=== PATIENT | female | born 1940 | race Caucasian/White ===

== ENCOUNTER 2016-05-20 11:17 | Outpatient (CLI) | payer MEDICARE, OTHER | END 2016-05-20 11:18 | disposition home or self-care (01) | DX: I10 Essential (primary) hypertension (principal); E03.9 Hypothyroidism, unspecified ==

== ENCOUNTER 2016-05-24 11:00 | Outpatient (CLI) | payer MEDICARE, OTHER ==
--- NOTE | 2016-05-25 16:42 | Mammography Report ---
DIGITAL BILATERAL SCREENING MAMMOGRAM: 05/24/2016 CLINICAL HISTORY: A 75-year-old female, asymptomatic. COMPARISON: 05/2013, 07/2010, 12/2008, 09/2007. TECHNIQUE: Routine CC and MLO projections were obtained of the breasts. FINDINGS: Scattered fibroglandular tissue is present within the breasts. There are no dominant nova s, suspicious microcalcifications, or secondary signs of malignancy. In comparison to the previous st udies, there are no significant changes. ASSESSMENT: NO MAMMOGRAPHIC EVIDENCE OF MALIGNANCY. NO SIGNIFICANT INTERVAL CHANGES. RECOMMENDATION: Screening mammography is recommended annually. BIRADS category 1 - negative. STANDARD QUALIFYING STATEMENTS 1. This examination was reviewed with the aid of Computed-Aided Detection (CAD). 2. A negative or benign imaging report should not delay biopsy if clinically suspicious findings are present. Consider surgical consultation if warranted. More than 5% of cancers are not identified by i maging. 3. Dense breasts may obscure an underlying neoplasm. JOB #: [id number] EXT JOB #:[id number]
== END 2016-05-24 11:01 | disposition home or self-care (01) ==
LOC: DI 11:00
PROVIDERS: ATTEND Internal Medicine
DX: Z12.31 Encounter for screening mammogram for malignant neoplasm of breast (principal)
CPT/HCPCS: 77067

== ENCOUNTER 2017-05-24 10:52 | Outpatient (CLI) | payer MEDICARE, OTHER ==
--- NOTE | 2017-05-26 13:34 | DEXA Report ---
DEXA SCAN: 05/24/2017 INDICATION: SCREENING TECHNIQUE: Dual energy x-ray absorptiometry (DEXA) was performed on a [employer] system. Regions measured are the AP spine, femoral neck, and, if needed, forearm. COMPARISON: None. In accordance with the International Society for Clinical Densitometry (ISCD) guidelines, data from previous exams may be reanalyzed using current recommendations and techniques. This is done to allow a more accurate basis for comparison with the current study. FINDINGS The data for the lumbar spine is as follows: REGION BMD (g/cm/cm) T-SCORE Z-SCORE L1 1.087 -0.4 1.5 L2 1.081 -1.0 0.9 L3 1.319 1.0 2.9 L4 1.231 0.3 2.2 L1-L4 1.181 0.0 1.9 L2-L4 1.214 0.1 2.0 NOTE: ONLY L2 IS USED FOR CLASSIFICATION. The data for the hip is as follows: REGION BMD (g/cm/cm) T-SCORE Z-SCORE Neck 0.696 -2.5 -0.3 TOTAL 0.780 -1.8 0.2 NOTE: The femoral neck or total proximal femur, whichever is lowest, is used for classification. IMPRESSION WHO CLASSIFICATION BASED ON THE INTERNATIONAL REFERENCE STANDARD IS OSTEOPENIA FOR THE LUMBAR SPINE. WHO CLASSIFICATION FOR THE FEMORAL NECK IS OSTEOPOROSIS. FRACTURE RISK IS HIGH. RECOMMENDATION: Patients with diagnosis of osteoporosis or osteopenia should have regular bone mineral density assessment. For those eligible for Medicare, routine testing is allowed once every 2 years. Testing frequency can be increased for patients who have rapidly progressing disease or for those who are receiving medical therapy to restore bone mass. COMMENT World Health Organization (WHO) definitions for osteoporosis and osteopenia: NORMAL BMD: T-score at 1.0 or higher, fracture risk is low. OSTEOPENIA BMD: T-score between 1.0 and -2.5, fracture risk is increased. OSTEOPOROSIS BMD: T-score at 2.5 or lower, fracture risk high. National Osteoporosis Foundation recommends: 1. Obtain adequate dietary calcium (at least 1200 mg per day) and vitamin D (400 -800 international units per day). 2. Participate, as appropriate, in regular weightbearing and muscle- strengthening exercise. 3. Avoid tobacco use and reduce alcohol and caffeine intake. 4. For more detailed information see the website at www.NOF.org. TD: 05/24/2017 14:40 DAVI
== END 2017-05-24 10:53 | disposition home or self-care (01) ==
LOC: DI 10:52
PROVIDERS: ATTEND Family Medicine
DX: M81.0 Age-related osteoporosis without current pathological fracture (principal)
CPT/HCPCS: 77080

== ENCOUNTER 2017-05-24 10:52 | Outpatient (CLI) | payer MEDICARE, OTHER ==
--- NOTE | 2017-05-25 17:42 | Mammography Report ---
BILATERAL SCREENING MAMMOGRAM: 05/24/2017 COMPARISON STUDY: Mammogram 05/24/2016. INDICATION: Screening. TECHNIQUE: Bilateral CC and MLO breast views. FINDINGS: There are scattered fibroglandular densities. No dominant mass, architectural distortion or concerning cluster of microcalcifications are seen. IMPRESSION: 1. BIRADS CATEGORY 1, NEGATIVE. 2. RECOMMEND ANNUAL SCREENING MAMMOGRAM. STANDARD QUALIFYING STATEMENTS 1. This examination was reviewed with the aid of Computed-Aided Detection (CAD) . 2. A negative or benign imaging report should not delay biopsy if clinically suspicious findings are present. Consider surgical consultation if warranted. More than 5 % of cancers are not identified by imaging. 3. Dense breasts may obscure an underlying neoplasm. TD: 05/25/2017 17:42 MTDAshish
== END 2017-05-24 10:53 | disposition home or self-care (01) ==
LOC: DI 10:52
PROVIDERS: ATTEND Family Medicine
DX: Z12.31 Encounter for screening mammogram for malignant neoplasm of breast (principal)
CPT/HCPCS: 77067

== ENCOUNTER 2019-05-03 10:43 | Outpatient (CLI) | payer MEDICARE, OTHER | END 2019-05-03 10:44 | disposition critical access hospital (66) | LOC: EMS 10:43 | PROVIDERS: ATTEND Surgery | DX: M79.651 Pain in right thigh (principal); M54.5 Low back pain; W01.0XXA Fall on same level from slipping, tripping and stumbling without subsequent striking against object, initial encounter; Y93.G3 Activity, cooking and baking; Y92.000 Kitchen of unspecified non-institutional (private) residence as the place of occurrence of the external cause | CPT/HCPCS: A0425; A0429 ==

== ENCOUNTER 2019-05-03 10:58 | Inpatient (IN) | payer MEDICARE, OTHER ==
[2019-05-03] MEDS ORDERED: oxyCODONE 5 MG TABLET PO STA (12:41)
--- NOTE | 2019-05-03 12:44 | ED Physician Documentation ---
History of Present Illness - Stated complaint Stated Complaint: FALL - Chief complaint Chief Complaint: Ext Problem - History obtained from History obtained from: Patient - History of Present Illness Timing: Last night Pain level max: 8 Pain level now: 8 - Additonal information Additional information: 78-year-old female was in her kitchen last night when she slipped fell landed on the hip, right knee, neck and back of the head. Unsure if she lost consciousness or not. No nausea or vomiting. States most of her pain is now on the right hip down to the right knee. States it is difficult to bear weight. She took an aspirin this morning for pain. No numbness or tingling. No deformity. She is not on blood thinners. Worse with ambulation, better with rest Review of Systems Ten Systems: 10 systems reviewed and negative Constitutional: denies: Fever, Chills Eyes: denies: Photophobia Ears: denies: Ear pain Nose: denies: Epistaxis Throat: denies: Sore throat Cardiac: denies: Chest pain / pressure Respiratory: denies: Cough GI: denies: Abdominal Pain, Vomiting, Diarrhea Skin: denies: Rash Musculoskeletal: denies: Neck pain, Back pain Neurologic: denies: Focal weakness, Numbness, Headache PD PAST MEDICAL HISTORY - Past Medical History Past Medical History: Yes Endocrine/Autoimmune: HyPOthyroidism - Past Surgical History Past Surgical History: Yes - Present Medications Home Medications: Ambulatory Orders Medication Instructions Recorded Confirmed Cholecalciferol (Vitamin D3) 1 tab PO DAILY 05/03/19 [Vitamin D3] Glucosamine HCl 1,500 mg PO DAILY 05/03/19 05/03/19 Levothyroxine [Synthroid] 75 mcg PO DAILY 05/03/19 05/03/19 Loratadine 10 mg PO DAILY 05/03/19 05/03/19 Multivitamin [Theragran] 1 tab PO DAILY 05/03/19 05/03/19 Naproxen Sodium [Aleve] 220 mg PO QPM 05/03/19 05/03/19 Omeprazole 20 mg PO DAILY 05/03/19 05/03/19 Zolpidem [Ambien] 2.5 mg PO QPM PRN 05/03/19 05/03/19 - Allergies Allergies/Adverse Reactions: Allergies Allergy/AdvReac Type Severity Reaction Status Date / Time diphenhydramine AdvReac Unknown Verified 05/03/19 11:35 [From Benadryl] - Social History Does the pt smoke?: No Smoking Status: Never smoker Does the pt drink ETOH?: No Does the pt have substance abuse?: No PD ED PE NORMAL - Vitals Vital signs reviewed: Yes - General General: Alert and oriented X 3, No acute distress, Well developed/nourished - HEENT HEENT: Atraumatic, PERRL, Ears normal, Moist mucous membranes - Neck Neck: Supple, no meningeal sign, No bony TTP - Cardiac Cardiac: RRR, Strong equal pulses - Respiratory Respiratory: No respiratory distress, Clear bilaterally - Abdomen Abdomen: Soft, Non tender, Non distended - Back Back: No spinal TTP - Derm Derm: Warm and dry - Extremities Extremities: No deformity, Other (Mild pain with range of motion of the right knee and right hip. No deformity. No tenderness to palpation. There is pain with internal and external rotation of the right hip. Neurovascular intact. Normal examination of the remainder of the right lower extremity and the left lower extremity. The right knee ACL, MCL, PCL, LCL are intact. No effusion. No ecchymosis over the entire leg) - Neuro Neuro: Alert and oriented X 3 - Psych Psych: Normal mood, Normal affect Results - Vitals Vitals: Vital Signs - 24 hr 05/03/19 11:00 Temperature 36.7 C Heart Rate 90 Respiratory 18 Rate Blood Pressure 156/71 H O2 Saturation 99 Oxygen O2 Source Room air - Labs Labs: Laboratory Tests 05/03/19 05/03/19 14:20 14:20 WBC 11.6 H RBC 4.79 Hgb 14.7 Hct 43.1 MCV 90.0 MCH 30.7 MCHC 34.1 RDW 12.8 Plt Count 221 MPV 8.8 Neut # (Auto) 9.1 H Lymph # (Auto) 1.2 L [place] # (Auto) 0.6 Eos # (Auto) 0.5 Baso # (Auto) 0.0 Absolute Nucleated RBC 0.00 Nucleated RBC % 0.0 Sodium 137 Potassium 3.6 Chloride 103 Carbon Dioxide 25 Anion Gap 9.0 BUN 12 Creatinine 0.6 Estimated GFR (MDRD) 96 Glucose 118 H Calcium 9.4 - Rads (name of study) Head CT Radiology: Prelim report reviewed, EMP read contemporaneously, See rad report (No acute abnormality) Cervical spine CT Radiology: Prelim report reviewed, EMP read contemporaneously, See rad report (No acute abnormality) Right hip x-ray Radiology: Prelim report reviewed, EMP read contemporaneously, See rad report (1. Osteopenia with evident mildly displaced right femoral neck fracture noted. 2. Possible additional subtle nondisplaced fracture of the right pubic root. ) Right knee x-ray Radiology: Prelim report reviewed, EMP read contemporaneously, See rad report (No acute abnormality) PD MEDICAL DECISION MAKING - ED course Complexity details: reviewed results, re-evaluated patient, considered d ifferential, d/w patient, d/w document management consultant ED course: Patient with a right hip fracture. Discussed the case with Dr. Zaragoza, orthopedics who recommends admission to the hospitalist and he will come evaluate the patient after that. Discussed the case with Dr. Zepeda who will accept. No acute findings on head CT, cervical spine CT or x-ray of the knee. This document was made in part using voice recognition software. While efforts are made to proofread this document, sound alike and grammatical errors may occur. Departure - Departure Disposition: [facility] DC/Xfer Clinical Impression: Hip fracture, right Qualifiers: Qualified Code(s): S72.001A - Fracture of unspecified part of neck of right femur, initial encounter for closed fracture Condition: Stable Discharge Date/Time: 05/03/19 16:13
--- NOTE | 2019-05-03 13:41 | CT Report ---
Reason: neck pain s/p fall Procedure Date: 05/03/2019 Accession Number: [id number] / [id number] Procedure: CT - CERVICAL SPINE WO CPT Code: Final Report FULL RESULT: EXAM: CT CERVICAL SPINE WITHOUT CONTRAST DATE: 05/03/2019 01:19 PM. HISTORY: Neck pain s/p fall. COMPARISONS: None. TECHNIQUE: Thin-section axial images were acquired of the cervical spine without contrast. Post-processing: Coronal and sagittal reformats. Other: None. In accordance with CT protocol optimization, one or more of the following dose reduction techniques were utilized for this exam: automated exposure control, adjustment of mA and/or KV based on patient size, or use of iterative reconstructive technique. FINDINGS: Alignment: There is a proximally 3 mm, grade 1 anterolisthesis at C7-T1. There is no significant scoliosis. Bones: No acute fracture is demonstrated. Degenerative cystic change demonstrated and the odontoid process. Interspace Levels/Facets: C1-C2: Degeneration at the articulation of the C1-C2 lateral mass. C2-C3: Mild disk height loss with central disk protrusion. There is severe left facet degeneration. No significant central canal or neural foraminal narrowing. C3-C4: Severe degenerative disk disease with posterior disk osteophyte complex. Severe bilateral facet degeneration is present. No significant central canal narrowing. However, there is moderate-severe right neural foraminal narrowing. C4-C5: Severe degenerative disk disease and severe bilateral facet degeneration. There is moderate right neural foraminal narrowing. C5-C6: Severe degenerative disk disease with broad posterior disk osteophyte complex. Moderate bilateral facet degeneration. Central canal appears mildly narrowed, and there is moderate bilateral neural foraminal narrowing. C6-C7: Severe degenerative disk disease demonstrated. There is mild right neural foraminal narrowing. C7-T1: There is severe degenerative disk disease and grade 1 anterolisthesis. Severe bilateral facet degeneration. Musculature: No fatty atrophy. Other: No edema is demonstrated in the prevertebral space. There are small gas-filled outpouchings along the right posterior aspect of the trachea (series 4, images 70 and 75), most compatible with tracheal diverticuli. Lung apices are clear. IMPRESSION: 1. No acute fracture of the cervical spine. 2. Severe multilevel degenerative changes, as described above. 3. Grade 1 anterolisthesis at C7-T1. RADIA
--- NOTE | 2019-05-03 14:02 | XRAY Report ---
Reason: R hip pain s/p fall Procedure Date: 05/03/2019 Accession Number: [id number] / [id number] Procedure: XR - Hip w/Pelvis 2-3V RT CPT Code: Final Report FULL RESULT: EXAM: RIGHT HIP RADIOGRAPHY EXAM DATE: 05/03/2019 01:30 PM. CLINICAL HISTORY: R hip pain s/p fall. COMPARISON: None. TECHNIQUE: 2 views. FINDINGS: Bones: Osteopenia evident. Mildly displaced right femoral neck fracture is seen. Lucency at the right pubic root may reflect a subtle nondisplaced fracture. Joints: Normal alignment of the hip joints. Mild degenerative arthritis seen. No dislocation. Soft Tissues: Soft tissue swelling of the right hip. IMPRESSION: 1. Osteopenia with evident mildly displaced right femoral neck fracture noted. 2. Possible additional subtle nondisplaced fracture of the right pubic root. 3. No dislocation. RADIA
--- NOTE | 2019-05-03 14:02 | CT Report ---
Reason: head injury s/p fall Procedure Date: 05/03/2019 Accession Number: [id number] / [id number] Procedure: CT - HEAD WO CPT Code: Final Report FULL RESULT: EXAM: CT HEAD EXAM DATE: 05/03/2019 01:19 PM. CLINICAL HISTORY: Head injury status post fall. COMPARISON: None. TECHNIQUE: Multiaxial CT images were obtained from the foramen magnum to the vertex. Reformats: Sagittal and coronal. IV contrast: None. In accordance with CT protocol optimization, one or more of the following dose reduction techniques were utilized for this exam: automated exposure control, adjustment of mA and/or KV based on patient size, or use of iterative reconstructive technique. FINDINGS: Parenchyma: No intraparenchymal hemorrhage. No evidence of mass, midline shift, or CT findings of infarction. Roca-white differentiation is distinct. Extraaxial Spaces: Normal for age. No subdural or epidural collections identified. Ventricles: Normal in size and position. Sinuses and Orbits: Imaged paranasal sinuses, orbits, and mastoids show no significant abnormality. Bones: No evidence of fracture or calvarial defect. Other: None. IMPRESSION: Normal head CT. No fracture or intracranial hemorrhage. RADIA
--- NOTE | 2019-05-03 14:03 | XRAY Report ---
Reason: R knee pain s/p fall Procedure Date: 05/03/2019 Accession Number: [id number] / [id number] Procedure: XR - Knee 4 View RT CPT Code: Final Report FULL RESULT: EXAM: RIGHT KNEE RADIOGRAPHY EXAM DATE: 05/03/2019 01:41 PM. CLINICAL HISTORY: Right knee pain status post fall. COMPARISON: XR KNEE 1 OR 2 VIEW 10/03/2008 12:08 PM. TECHNIQUE: 4 views. FINDINGS: Bones: No evidence for acute fracture. Sclerotic ring and arc type pattern seen in the distal femoral diaphysis, appears benign, could represent enchondroma or bone infarct. Joints: Moderate lateral compartment femoral tibial joint space narrowing with sclerosis and osteophytes. Mild medial compartment femoral tibial osteophytes with chondrocalcinosis. Minimal posterior patellar osteophyte. No subluxation. No significant knee joint effusion. Soft Tissues: Unremarkable. IMPRESSION: No evidence for acute fracture. Degenerative changes. See above. RADIA
[2019-05-03] MEDS ORDERED: SODIUM CHLORIDE FLUSH 0.9% 10 ML SYRINGE IVP PRN (14:22)
[2019-05-03 14:25] LABS: BASOPHILS % (AUTO) 0.3 %; EOSINOPHILS # (AUTO) 0.5 10^3/uL (0.0-0.7); EOSINOPHILS % (AUTO) 4.7 %; HGB - HEMOGLOBIN 14.7 g/dL (12.0-16.0); LYMPHOCYTES # (AUTO) 1.2 10^3/uL (1.5-3.5); LYMPHOCYTES % (AUTO) 10.3 %; MEAN CORPUSCULAR HEMOGLOBIN 30.7 pg (27.0-31.0); MEAN CORPUSCULAR HGB CONC 34.1 g/dL (32.0-36.0); MEAN PLATELET VOLUME 8.8 fL (7.9-10.8); MONOCYTES # (AUTO) 0.6 10^3/uL (0.0-1.0); MONOCYTES % (AUTO) 5.5 %; NEUTROPHILS # (AUTO) 9.1 10^3/uL (1.5-6.6); NEUTROPHILS % (AUTO) 78.7 %; PLT - PLATELET COUNT 221 10^3/uL (130-450); RED BLOOD COUNT 4.79 10^6/uL (4.20-5.40); RED CELL DISTRIBUTION WIDTH 12.8 % (12.0-15.0); WHITE BLOOD COUNT 11.6 x10^3/uL (4.8-10.8)
[2019-05-03 14:34] LABS: CALCIUM 9.4 mg/dL (8.5-10.3); CREATININE 0.6 mg/dL (0.4-1.0)
--- NOTE | 2019-05-03 15:11 | ANESTHESIA ---
Pre-Anesthesia VS, & Labs - Diagnosis Right hip fracture - Procedure Right hip fracture repair Vital Signs: Temp Pulse Resp BP Pulse Ox 36.7 C 90 18 156/71 H 99 05/03/19 11:00 05/03/19 11:00 05/03/19 11:00 05/03/19 11:00 05/03/19 11:00 Height 4 ft 10 in Weight (kg) 63.503 kg Body Mass Index 29.2 - Is Patient ?: Not Applicable - Lab Results Current Lab Results: Laboratory Tests 05/03/19 14:20: Sodium 137, Potassium 3.6, Chloride 103, Carbon Dioxide 25, Anion Gap 9.0, BUN 12, Creatinine 0.6, Estimated GFR (MDRD) 96, Glucose 118 H, Calcium 9.4 05/03/19 14:20: WBC 11.6 H, RBC 4.79, Hgb 14.7, Hct 43.1, MCV 90.0, MCH 30.7, MCHC 34.1, RDW 12.8, Plt Count 221, MPV 8.8, Neut # (Auto) 9.1 H, Lymph # (Auto) 1.2 L, Leon # (Auto) 0.6, Eos # (Auto) 0.5, Baso # (Auto) 0.0, Absolute Nucleated RBC 0.00, Nucleated RBC % 0.0 Lab results reviewed: Yes Fish Bones: 05/03/19 14:20 05/03/19 14:20 Home Medications and Allergies Home Medications: Ambulatory Orders Loratadine 05/03/19 Active Medications Sodium Chloride (Normal Saline Flush 0.9%) 10 ml IVP PRN PRN PRN Reason: NEEDED PER PROVIDER ORDERS Sodium Chloride (Normal Saline Flush 0.9%) 10 ml IVP 0100,[id number],1700 CARLOS Loratadine 05/03/19 Prilosec Naprosyn Ambien Allergies/Adverse Reactions: Allergies Allergy/AdvReac Type Severity Reaction Status Date / Time diphenhydramine AdvReac Unknown Verified 05/03/19 11:35 [From Benadryl] Anes History & Medical History - Anesthetic History Anesthesia Complications: reports: No previous complications Family history of Anesthesia Complications: Denies Family history of Malignant Hyperthermia: Denies - Medical History Cardiovascular: reports: Hypertension Pulmonary: reports: None Gastrointestinal: reports: GERD Urinary: reports: None Neuro: reports: None Musculoskeletal: reports: Osteoarthritis, Osteoporosis (Cervical stenosis) Endocrine/Autoimmune: reports: HyPOthyroidism Blood Disorders: reports: None (Patient ststes she is a "slow clotter") Skin: reports: None Smoking Status: Never smoker Psychosocial: reports: No issues indicated Exam General: Alert, Oriented x3, Cooperative Dental: WNL Mouth Opening: Greater than 4 Fingerbreadths Neck Mobility: Normal Mallampati classification: I Thyromental Distance: greater than 6 cm Respiratory: Lungs clear Cardiovascular: Regular rate Plan Anesthesia Type: General Consent for Procedure(s) Verified and Reviewed: Yes Code Status: Attempt Resuscitation ASA classification: 2-Mild systemic disease Is this case an emergency?: Yes
--- NOTE | 2019-05-03 15:32 | HISTORY & PHYSICAL EXAMINATION ---
Chief Complaint - Chief Complaint Chief Complaint: fall, inability to walk History of Present Illness - Admitted From Admitted From:: ED - History Obtained From Records Reviewed: yes History obtained from: patient Exam Limitations: none - History of Present Illness HPI Comment/Other: Shyann Morgan is a healthy appearing 78-year old white female with a past medical history of hypothyroidism, thyroid tumor, status post thyroidectomy, hypertension, uterine fibroids, status post hysterectomy at age 48, and insomnia. The patient was in her usual state of health when she accidentally slipped and fell backwards, while in her kitchen. She states that her sister is visiting from out of state, so she was cooking a meal for the two of them after spending the day in [employer]. She states that she has never fallen or lost consciousness, that she knows of. She states she had no warning such as dizziness, confusion, chest pain, nausea, diaphoresis, or palpitations as she was about to fall. She believes that the kitchen floor may have had a tiny puddle of water on it and she was wearing crock shoes, which can be slippery, so that is how she ended up on the floor. She landed on her right elbow, right hip, right knee, clunked her head and neck on the floor, as well. She was very thankful that her sister was there, who quickly helped her up in a doggy style position, and back on her feet. Right away, she could not bear too much weight on the right leg without having horrible pain in her right hip. She did not think it was broken since she could bear some weight on it. When waking up this morning, she could not bear weight on her right leg, so she was brought to the ED via private car. Imaging in the ED showed a mildly displaced right femoral neck fracture, possible subtle non-displaced fracture of the right pubic root. No significant labs, no abnormal exam findings. Admit to inpatient with anticipation of surgery in the AM. 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 Father: at age 98, no known chronic diseases. The patient has 2 daughters, 2 sons who are all alive and well Living arrangement: At home Living Situation: Alone Social History Notes: The patient is retired, lives alone since her 5 years ago. Her daughter lives very close to her. The patient is independent, still drives, is heavily involved with her christianity. Attends a [employer] walking group called, walk & talk every Monday morning. 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 She notes that she has lived a good life. She denies tobacco, alcohol, or illicit drug use. She states she has an advanced directive. When asking about life saving measures, she believes for now she is a FULL code. - Substance History Use: Uses substance without health or social issues: NONE Abuse: Recurrent use of substance despite neg consequences: NONE Dependence: Experiences withdrawal or developed tolerances: NONE - POLST Patient has POLST: No POLST Status: Full Code Meds/Allgy - Home Medications Home Medications: Ambulatory Orders Medication Instructions Recorded Confirmed Cholecalciferol (Vitamin D3) 1 tab PO DAILY 05/03/19 [Vitamin D3] Glucosamine HCl 1,500 mg PO DAILY 05/03/19 05/03/19 Levothyroxine [Synthroid] 75 mcg PO DAILY 05/03/19 05/03/19 Loratadine 10 mg PO DAILY 05/03/19 05/03/19 Multivitamin [Theragran] 1 tab PO DAILY 05/03/19 05/03/19 Naproxen Sodium [Aleve] 220 mg PO QPM 05/03/19 05/03/19 Omeprazole 20 mg PO DAILY 05/03/19 05/03/19 Zolpidem [Ambien] 2.5 mg PO QPM PRN 05/03/19 05/03/19 - Allergies Allergies/Adverse Reactions: Allergies Allergy/AdvReac Type Severity Reaction Status Date / Time diphenhydramine AdvReac Unknown Verified 05/03/19 11:35 [From Benadryl] Review of Systems - Constitutional Constitutional: reports: Weakness - Gastrointestinal Gastrointestinal: reports: Reflux/heartburn - Musculoskeletal Musculoskeletal: reports: Limited range of motion, Joint pain (right hip, right elbow, right knee), Joint swelling - Neurological Neurological: reports: Focal weakness - Psychiatric Psychiatric: reports: Other (chronic insomnia) - All Other Systems All Other Systems: reports: Reviewed and negative Prior Level of Functionality: independent, drives a car, no falls prior to this, no use of a cane, in a walking club Exam - Vital Signs Reviewed Vital Signs: Yes Vital Signs: Vital Signs x48h Temp Pulse Resp BP Pulse Ox 05/03/19 11:00 36.7 C 90 18 156/71 H 99 - Physical Exam General Appearance: positive: No acute distress, Alert Eyes Bilateral: positive: Normal inspection, PERRL ENT: positive: ENT inspection nml, Pharynx nml, Dry mucous membranes Neck: positive: Thyroid nml, No JVD, Trachea midline Respiratory: positive: Chest non-tender, No respiratory distress, Breath sounds nml Cardiovascular: positive: Regular rate & rhythm, No gallop, Systolic murmur Peripheral Pulses: positive: 2+ Abdomen: positive: Non-tender, No organomegaly, Nml bowel sounds, Other (rounded, soft) Back: positive: Nml inspection Skin: positive: Color nml, No rash, Warm, Dry Extremities: positive: No pedal edema, Joint swelling (right knee, right hip, right elbow bruising) Neurologic/Psychiatric: positive: Oriented x3, CN's nml (2-12), Motor nml, Sensation nml, Mood/affect nml Reflexes: Bicep (R): 4+, Bicep (L): 4+, Ankle (R): 2+, Ankle (L): 3+ Conclusion/Plan - Problem List (1) Hip fracture, right Conclusion/Plan: - Imaging in the ED showed a mildly displaced right femoral neck fracture, possible subtle non-displaced fracture of the right pubic root -Dr. 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 -No recent TSH -Continue usual dose of Synthroid, adjust as needed Hypertension -Patient notes that in her younger years she had more stress in her life and was on HCTZ and one other pill, but has since not needed anything for blood pressure -B/P elevated in the ED at 156/71, heart rate 90 -Murmur heard on exam, concerning for valve abnormalities, echo is ordered for the AM -The echocardiogram does not have to be done prior to surgery since the patient has no other cardiac history such as atrial fibrillation, or known HI -Consider antihypertensive post op, monitor vital signs Insomnia -Patient states she takes Ambien at home -Notes that her family had a long history of sleep problems -Continue while in the hospital GERD -Patient takes PPI for her heart burn -PPI therapy if long-term can lead to bone loss (loss of magnesium) -Patient would like to stop her home PPI -Continue H2 brenna, anticipate sending a prescription to the pharmacy Allergies -Patient takes loratadine -Resume after surgery Pre-op exam -Using the revised cardiac index score, the patient scores a 3.9%, since she has no cardiac history, no diabetes, no history of TIA or stroke, no kidney disease and this is not a high risk surgery in that it will not involve the abdomen or chest cavities Qualifiers: - Lab Results Lab results reviewed: Yes Neal Bones: 05/03/19 14:20 05/03/19 14:20 Core Measures - Anticipated LOS I expect patient to be DC'd or transferred within 96 hours.: Yes - DVT/VTE - Prophylaxis VTE/DVT Device ordered at admit?: Yes VTE/DVT Prophylaxis med ordered at admit?: No Not Ordered - Medical Reason: Contraindicated - Stroke - Rehab Assessment Rehab services assessment to be ordered?: Yes - AMI - Statin at Admit Aspirin Prescribed on Admit: No Not Ordered - Medical Reason: Contraindicated
--- NOTE | 2019-05-03 16:03 | PHARMACY PROGRESS NOTE ---
- Best Possible Medication History Admit Date and Time: 05/03/19 1422 Processed by: Pharmacy Medication History completed: Yes Patient Interview: Completed Secondary Source(s): Physician records As the person ultimately responsible for medication therapy, providers are able to order a medication from an existing home medication list in [facility] via the "Reconcile Routine" prior to Confirmation of that medication by administrative support associate. Such practice is discouraged except when the physician, in their clinical judgment, deems that a medical need exists for a medication without regard to previous use.
[2019-05-03] MEDS ORDERED: ZOLPIDEM 5 MG TABLET PO PRN (16:14)
[2019-05-03] MEDS ORDERED: ACETAMINOPHEN 325 MG TABLET PO PRN (16:15)
[2019-05-03] MEDS: SODIUM CHLORIDE FLUSH 0.9% 10 ML SYRINGE IVP SCH (16:23)
[2019-05-03] MEDS: NS W/20 MEQ KCL 1,000 ML IV SCH (17:08)
[2019-05-03] MEDS: HYDROmorphone 1 MG/ML SYRINGE IVP PRN (19:13)
--- NOTE | 2019-05-03 19:59 | CONSULTATION NOTE ---
Referring Provider Name of Referring Provider:: Damian Billingsley MD Consult Date: 05/03/19 Chief Complaint - Chief Complaint Chief Complaint: asked to evaluate patient for right femoral neck fracture History of Present Illness - History Obtained From Records Reviewed: chart History obtained from: ED MD, patient, daughter - History of Present Illness HPI Comment/Other: patient is an 78F who is active and lives alone. does not use assistive device for ambulation. [place]. Patient slipped last night in kitchen and had hip pain and difficulty ambulating. was helped by her sister who is visiting from out of town to get around. then brought in to ED and found to have a right femoral neck fracture- ortho consult requested. History - Past Medical History Cardiovascular: reports: Hypertension, Other (no known blood dyscrasia but notes that sometimes seems slow to coagulate and has notified prior to previous surgeries/dental work, no treatment noted and no formal dx noted) Respiratory: reports: None Neuro: reports: None Endocrine/Autoimmune: reports: HyPOthyroidism GI: reports: GERD GM: reports: Fibroids : reports: None HEENT: reports: None Psych: reports: None Musculoskeletal: reports: Osteoporosis Derm: reports: None MRSA Hx?: No - Past Surgical History /GM: reports: section, Hysterectomy Other past surgical history: thyroidectomy - Family & Social History Family History: Mother: , CVA/TIA, Father: Family History Comment/Other: Mother: at age 98, had a devistating stroke as the cause. Father: at age 98, no known chronic diseases. The patient has 2 daughters, 2 sons who are all alive and well Living arrangement: At home Living Situation: Alone Social History Notes: The patient is retired, lives alone since her 5 years ago. Her daughter lives very close to her. The patient is independent, still drives, is heavily involved with her anabaptism. Attends a [employer] walking group called, walk & talk every Monday morning. 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 She notes that she has lived a good life. She denies tobacco, alcohol, or illicit drug use. She states she has an advanced directive. When asking about life saving measures, she believes for now she is a FULL code. - Substance History Use: Uses substance without health or social issues: NONE Abuse: Recurrent use of substance despite neg consequences: NONE Dependence: Experiences withdrawal or developed tolerances: NONE - POLST Patient has POLST: No POLST Status: Full Code Meds/Allgy - Home Medications Home Medications: Ambulatory Orders Medication Instructions Recorded Confirmed Cholecalciferol (Vitamin D3) 1 tab PO DAILY 05/03/19 [Vitamin D3] Glucosamine HCl 1,500 mg PO DAILY 05/03/19 05/03/19 Levothyroxine [Synthroid] 75 mcg PO DAILY 05/03/19 05/03/19 Loratadine 10 mg PO DAILY 05/03/19 05/03/19 Multivitamin [Theragran] 1 tab PO DAILY 05/03/19 05/03/19 Naproxen Sodium [Aleve] 220 mg PO QPM 05/03/19 05/03/19 Omeprazole 20 mg PO DAILY 05/03/19 05/03/19 Zolpidem [Ambien] 2.5 mg PO QPM PRN 05/03/19 05/03/19 - Allergies Allergies/Adverse Reactions: Allergies Allergy/AdvReac Type Severity Reaction Status Date / Time diphenhydramine AdvReac Unknown Verified 05/03/19 11:35 [From Benadryl] Exam - Vital Signs Vital Signs: Vital Signs x48h Temp Pulse Pulse Resp BP Pulse Ox 05/03/19 17:35 37.2 C 82 20 98 05/03/19 16:00 37.2 C 84 20 146/62 H 95 - Physical Exam Comments/Other: pt awake and alert x 3. cooperative with exam. RLE toes and ankle flex ex. palp dp. light touch sensation intact foot ankle calf. calf and thich s/nt. no ttp knee calf. initiates hip flexion ltd with pain as is gentle log rolling. skin overlying hip and thigh intact with some residual adhesive from pain medicine patch. no erythema/streaking. rle minimally shorter than left but no sig ER or hip flx at rest. Conclusion/Plan - Diagnosis Diagnosis: Displaced Right subcapital femoral neck fracture - Plan Plan: 78f with right displaced subcapital femoral neck fracture. Discussed injury with patient and daughter. Diagram drawn. Discussed natural hx and relavant literature. Discussed R/B/A of op and non op tx. Discussed possible risks including but not limited to: infection, wound complications, bleeding, blood loss, blood clot, embolus, pain, stiffness, decreased ROM strength or function, worsening of her condition in any way, inability to return to previous level of function or ambulation, iatrogenic injury, positioning complications, anesthetic complications including but not limited to significant cardiovascular, neurovascular complications even . We discussed the fact that there may be other risks not addressed here. Their questions were answered. The verbalized understanding of the above and the patient verbalized her with to proceed with procedure noted below. Will continue with preanesthetic evaluation and medical optomization. coag labs to be drawn with hx of possible slow to coagulate thogh no hx of treatment or dx for this. plan for surgery pending above. proposed surgery: right hip endoprosthesis. - Lab Results Lab results reviewed: Yes Fish Bones: 05/03/19 14:20 05/03/19 14:20 - Diagnostic Imaging Results Diagnostic Imaging Results Comments: displaced right subcap femoral neck fracture from films done today
[2019-05-03 20:24] LABS: INR 1.1 (0.8-1.2); PT - PROTHROMBIN TIME 12.9 secs (9.9-12.6)
[2019-05-03 20:31] LABS: PARTIAL THROMBOPLASTIN TIME 28.9 secs (24.9-33.3)
[2019-05-03] MEDS: FAMOTIDINE 20 MG TABLET PO SCH (20:41)
[2019-05-03] MEDS ORDERED: PROMETHAZINE INJ 25 MG in SODIUM CHLORIDE 0.9% 50 ML IV PRN (23:41)
[2019-05-04] MEDS: CALCIUM CARBONATE CHEW 500 MG TABLET PO SCH ×3 (00:23→20:38)
[2019-05-04] MEDS: SODIUM CHLORIDE FLUSH 0.9% 10 ML SYRINGE IVP SCH ×4 (00:24→23:33)
[2019-05-04] MEDS: HYDROmorphone 1 MG/ML SYRINGE IVP PRN (02:59)
[2019-05-04] MEDS: NS W/20 MEQ KCL 1,000 ML IV SCH ×2 (05:14→12:29)
[2019-05-04] MEDS: LEVOTHYROXINE 75 MCG TABLET PO SCH (05:51)
[2019-05-04 06:15] LABS: BASOPHILS # (AUTO) 0.1 10^3/uL (0.0-0.1); BASOPHILS % (AUTO) 0.7 %; EOSINOPHILS # (AUTO) 0.7 10^3/uL (0.0-0.7); HGB - HEMOGLOBIN 13.1 g/dL (12.0-16.0); LYMPHOCYTES # (AUTO) 1.1 10^3/uL (1.5-3.5); LYMPHOCYTES % (AUTO) 12.7 %; MEAN CORPUSCULAR HEMOGLOBIN 30.4 pg (27.0-31.0); MEAN CORPUSCULAR HGB CONC 32.9 g/dL (32.0-36.0); MEAN CORPUSCULAR VOLUME 92.3 fL (81.0-99.0); MEAN PLATELET VOLUME 9.1 fL (7.9-10.8); MONOCYTES # (AUTO) 0.6 10^3/uL (0.0-1.0); MONOCYTES % (AUTO) 6.2 %; NEUTROPHILS # (AUTO) 6.5 10^3/uL (1.5-6.6); PLT - PLATELET COUNT 208 10^3/uL (130-450); RED BLOOD COUNT 4.31 10^6/uL (4.20-5.40); RED CELL DISTRIBUTION WIDTH 12.9 % (12.0-15.0)
[2019-05-04 06:29] LABS: ALBUMIN 3.5 g/dL (3.2-5.5); ALBUMIN/GLOBULIN RATIO 1.4 (1.0-2.2); CALCIUM 8.7 mg/dL (8.5-10.3); CREATININE 0.5 mg/dL (0.4-1.0); MAGNESIUM 1.9 mg/dL (1.7-2.8)
[2019-05-04] MEDS: PROCHLORPERAZINE 10 MG/2 ML VIAL IVP PRN ×2 (06:52→12:30)
[2019-05-04] MEDS ORDERED: BUPIVACAINE 0.5% PF 30 ML VIAL ONE (07:31)
[2019-05-04] MEDS ORDERED: LIDOCAINE 1%-EPI 1:100000 20 ML MDV ONE (07:31)
--- NOTE | 2019-05-04 07:53 | MISCELLANEOUS PROVIDER NOTE ---
Miscellaneous Provider Note - - Note: Patient seen and examined this morning. Patient identifies her right hip as the operative site. Coagulation labs reviewed. PT slightly high INR and PTT within normal limits. Do not think that this would preclude proceeding with operative intervention at this time. Patient questions answered. Patient verbalized understanding of discussion regarding proposed surgery. She verbalized her wish to proceed with planned right hip endoprosthesis.
[2019-05-04] MEDS ORDERED: LACTATED RINGERS 1,000 ML IV ONE ×2 (08:05→09:49)
[2019-05-04] MEDS: FAMOTIDINE 20 MG TABLET PO SCH ×2 (08:35→20:38)
--- NOTE | 2019-05-04 08:59 | PROVIDER PROGRESS NOTE ---
Subjective - Prog Note Date Prog Note Date: 05/04/19 Prog Note Time: 08:59 - Subjective Pt reports feeling: Improved Subjective: Shyann has no complaints and is glad to be done with surgery. She has one episode of vomiting after her lunch, none since. She has no new symptoms. Current Medications - Current Medications Current Medications: Active Medications: Acetaminophen (Tylenol) 650 mg PO Q4HR PRN Acetaminophen (Tylenol) 650 - 975 mg PO Q4HR PRN Aspirin (Erick) 325 mg PO BIDWM CARLOS Calcium Carbonate/Glycine (Tums) 500 mg PO BID CARLOS Famotidine (Pepcid) 20 mg PO BID CARLOS Hydromorphone HCl (Dilaudid Inj Syringe) 1 mg IVP Q2HR PRN Promethazine HCl 25 mg/ Sodium (Chloride) 51 mls @ 100 mls/hr IV Q6H PRN Cefazolin Sodium 2 gm/ Sodium (Chloride) 100 mls @ 200 mls/hr IV Q8H CARLOS Acetaminophen (Ofirmev) 100 mls @ 400 mls/hr IV Q6HR PRN Levothyroxine Sodium (Synthroid) 75 mcg PO QDAC CARLOS Ondansetron HCl (Zofran Inj) 4 mg IVP Q6HR PRN Prochlorperazine Edisylate (Compazine Inj) 10 mg IVP Q6HR PRN Zolpidem Tartrate (Ambien) 2.5 mg PO QPM PRN HOME meds: Cholecalciferol (Vitamin D3) [Vitamin D3] 1 tab PO DAILY 05/03/19 Glucosamine HCl 1,500 mg PO DAILY 05/03/19 Levothyroxine [Synthroid] 75 mcg PO DAILY 05/03/19 Loratadine 10 mg PO DAILY 05/03/19 Multivitamin [Theragran] 1 tab PO DAILY 05/03/19 Naproxen Sodium [Aleve] 220 mg PO QPM 05/03/19 Omeprazole 20 mg PO DAILY 05/03/19 Zolpidem [Ambien] 2.5 mg PO QPM PRN 05/03/19 Objective - Vital Signs/Intake & Output Reviewed Vital Signs: Yes Vital Signs: Vital Signs x48h Temp Pulse Resp BP Pulse Ox 05/04/19 07:41 36.5 C 84 18 139/58 H 91 L 05/04/19 03:03 36.6 C 86 16 143/64 H 93 Intake & Output: Intake & Output 05/01/19 05/02/19 05/03/19 05/04/19 23:59 23:59 23:59 23:59 Intake Total 1073.498 512.502 Output Total 200 Balance 1073.498 312.502 - Objective General Appearance: positive: No acute distress, Alert Eyes Bilateral: positive: PERRL, No lid inflammation ENT: positive: Pharynx nml, No signs of dehydration Neck: positive: No JVD, Trachea midline Respiratory: positive: Chest non-tender, No respiratory distress, Breath sounds nml Cardiovascular: positive: Regular rate & rhythm, No gallop, Systolic murmur Peripheral Pulses: 2+ Radial (R), 2+ Radial (L), 2+ Femoral (R), 2+ Femoral (L) Abdomen: positive: Non-tender, Nml bowel sounds Back: positive: Nml inspection Skin: positive: Color nml, No rash, Warm, Dry Extremities: positive: No pedal edema, Joint swelling (right hip) Neurologic/Psychiatric: positive: Oriented x3, CN's nml (2-12), Motor nml, Sensation nml, Weakness, Sensory loss Reflexes: Bicep (R): 3+, Bicep (L): 3+ - Lab Results Fish Bones: 05/04/19 06:00 05/04/19 06:00 Other Labs: Lab Results x24hrs 05/04/19 05/04/19 05/04/19 Range/Units 06:00 06:00 06:00 WBC 9.0 (4.8-10.8) x10^3/uL RBC 4.31 (4.20-5.40) 10^6/uL Hgb 13.1 (12.0-16.0) g/dL Hct 39.8 (37.0-47.0) % MCV 92.3 (81.0-99.0) fL MCH 30.4 (27.0-31.0) pg MCHC 32.9 (32.0-36.0) g/dL RDW 12.9 (12.0-15.0) % Plt Count 208 (130-450) 10^3/uL MPV 9.1 (7.9-10.8) fL Neut # (Auto) 6.5 (1.5-6.6) 10^3/uL Lymph # (Auto) 1.1 L (1.5-3.5) 10^3/uL Parker # (Auto) 0.6 (0.0-1.0) 10^3/uL Eos # (Auto) 0.7 (0.0-0.7) 10^3/uL Baso # (Auto) 0.1 (0.0-0.1) 10^3/uL Absolute Nucleated RBC 0.00 x10^3/uL Nucleated RBC % 0.0 /100WBC PT (9.9-12.6) secs INR (0.8-1.2) APTT (24.9-33.3) secs Sodium 137 (135-145) mmol/L Potassium 4.0 (3.5-5.0) mmol/L Chloride 105 (101-111) mmol/L Carbon Dioxide 24 (21-32) mmol/L Anion Gap 8.0 (6-13) BUN 11 (6-20) mg/dL Creatinine 0.5 (0.4-1.0) mg/dL Estimated GFR (MDRD) 119 (>89) Glucose 99 (70-100) mg/dL Calcium 8.7 (8.5-10.3) mg/dL Magnesium 1.9 (1.7-2.8) mg/dL Total Bilirubin 1.0 (0.2-1.0) mg/dL AST 13 (10-42) IU/L ALT 13 (10-60) IU/L Alkaline Phosphatase 47 (42-121) IU/L Total Protein 6.0 L (6.7-8.2) g/dL Albumin 3.5 (3.2-5.5) g/dL Globulin 2.5 (2.1-4.2) g/dL Albumin/Globulin Ratio 1.4 (1.0-2.2) TSH 4.61 (0.34-5.60) uIU/mL Blood Type Antibody Screen 05/03/19 05/03/19 05/03/19 Range/Units 20:11 20:11 14:20 WBC (4.8-10.8) x10^3/uL RBC (4.20-5.40) 10^6/uL Hgb (12.0-16.0) g/dL Hct (37.0-47.0) % MCV (81.0-99.0) fL MCH (27.0-31.0) pg MCHC (32.0-36.0) g/dL RDW (12.0-15.0) % Plt Count (130-450) 10^3/uL MPV (7.9-10.8) fL Neut # (Auto) (1.5-6.6) 10^3/uL Lymph # (Auto) (1.5-3.5) 10^3/uL Parker # (Auto) (0.0-1.0) 10^3/uL Eos # (Auto) (0.0-0.7) 10^3/uL Baso # (Auto) (0.0-0.1) 10^3/uL Absolute Nucleated RBC x10^3/uL Nucleated RBC % /100WBC PT 12.9 H (9.9-12.6) secs INR 1.1 (0.8-1.2) APTT 28.9 (24.9-33.3) secs Sodium 137 (135-145) mmol/L Potassium 3.6 (3.5-5.0) mmol/L Chloride 103 (101-111) mmol/L Carbon Dioxide 25 (21-32) mmol/L Anion Gap 9.0 (6-13) BUN 12 (6-20) mg/dL Creatinine 0.6 (0.4-1.0) mg/dL Estimated GFR (MDRD) 96 (>89) Glucose 118 H (70-100) mg/dL Calcium 9.4 (8.5-10.3) mg/dL Magnesium (1.7-2.8) mg/dL Total Bilirubin (0.2-1.0) mg/dL AST (10-42) IU/L ALT (10-60) IU/L Alkaline Phosphatase (42-121) IU/L Total Protein (6.7-8.2) g/dL Albumin (3.2-5.5) g/dL Globulin (2.1-4.2) g/dL Albumin/Globulin Ratio (1.0-2.2) TSH (0.34-5.60) uIU/mL Blood Type O POSITIVE Antibody Screen NEGATIVE 05/03/19 Range/Units 14:20 WBC 11.6 H (4.8-10.8) x10^3/uL RBC 4.79 (4.20-5.40) 10^6/uL Hgb 14.7 (12.0-16.0) g/dL Hct 43.1 (37.0-47.0) % MCV 90.0 (81.0-99.0) fL MCH 30.7 (27.0-31.0) pg MCHC 34.1 (32.0-36.0) g/dL RDW 12.8 (12.0-15.0) % Plt Count 221 (130-450) 10^3/uL MPV 8.8 (7.9-10.8) fL Neut # (Auto) 9.1 H (1.5-6.6) 10^3/uL Lymph # (Auto) 1.2 L (1.5-3.5) 10^3/uL Parker # (Auto) 0.6 (0.0-1.0) 10^3/uL Eos # (Auto) 0.5 (0.0-0.7) 10^3/uL Baso # (Auto) 0.0 (0.0-0.1) 10^3/uL Absolute Nucleated RBC 0.00 x10^3/uL Nucleated RBC % 0.0 /100WBC PT (9.9-12.6) secs INR (0.8-1.2) APTT (24.9-33.3) secs Sodium (135-145) mmol/L Potassium (3.5-5.0) mmol/L Chloride (101-111) mmol/L Carbon Dioxide (21-32) mmol/L Anion Gap (6-13) BUN (6-20) mg/dL Creatinine (0.4-1.0) mg/dL Estimated GFR (MDRD) (>89) Glucose (70-100) mg/dL Calcium (8.5-10.3) mg/dL Magnesium (1.7-2.8) mg/dL Total Bilirubin (0.2-1.0) mg/dL AST (10-42) IU/L ALT (10-60) IU/L Alkaline Phosphatase (42-121) IU/L Total Protein (6.7-8.2) g/dL Albumin (3.2-5.5) g/dL Globulin (2.1-4.2) g/dL Albumin/Globulin Ratio (1.0-2.2) TSH (0.34-5.60) uIU/mL Blood Type Antibody Screen ABX Reporting Has patient been on IV antibiotics over the past 48 hours?: Yes Assessment/Plan - Problem List (1) Hip fracture, right Impression: - Imaging in the ED showed a mildly displaced right femoral neck fracture, possible subtle non-displaced fracture of the right pubic root -Dr. Zaragoza was consulted by the ED physician, Hospitalist to be the admitting service, Orthopedic surgery to consult -Surgical repair today, 05/04/2019 -Follow post-operative recommendations, PT/OT, social work for D/C planning Post operative state -Surgical repair of right hip on 05/04/2019 Hypertension -Patient notes that in her younger years she had more stress in her life and was on HCTZ and one other pill, but has since not needed anything for blood pressure -B/P elevated in the ED at 156/71, heart rate 90 -Murmur heard on exam, concerning for valve abnormalities, echo is ordered for the AM -Preliminary echo shows mild diastolic dysfunction, mild mitral regurg, preserved EF -Consider antihypertensive post op, monitor vital signs Insomnia -Patient states she takes Ambien at home -Notes that her family had a long history of sleep problems -Continue while in the hospital GERD -Patient takes PPI for her heart burn -PPI therapy if salvage determiner can lead to bone loss (loss of magnesium) -Patient would like to stop her home PPI -Continue H2 brenna, anticipate sending a prescription to the pharmacy Hypothyroidism -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
[2019-05-04] MEDS ORDERED: BUPIVACAINE 0.5% PF 30 ML VIAL INFIL ONE (09:14)
[2019-05-04] MEDS ORDERED: LIDOCAINE 1%-EPI 1:100000 20 ML MDV SUBQ ONE (09:14)
[2019-05-04] MEDS ORDERED: SUGAMMADEX 200 MG/2 ML VIAL IVP ONE (11:02)
[2019-05-04] MEDS ORDERED: ACETAMINOPHEN 1,000 MG/100 ML 100 ML IV ONE (11:24)
[2019-05-04] MEDS ORDERED: ACETAMINOPHEN 325 MG TABLET PO PRN (11:25)
[2019-05-04] MEDS ORDERED: PROCHLORPERAZINE 10 MG/2 ML VIAL IVP PRN (11:25)
[2019-05-04] MEDS ORDERED: ONDANSETRON 4 MG/2 ML VIAL IVP PRN (11:25)
[2019-05-04] MEDS ORDERED: SODIUM CHLORIDE FLUSH 0.9% 10 ML SYRINGE IVP PRN (11:25)
--- NOTE | 2019-05-04 11:34 | IMMEDIATE POSTOPERATIVE NOTE ---
Immediate Postoperative Note - Procedure Note Procedure Date: 05/04/19 Pre-Op Diagnosis: RIGHT SUB CAP FEM NECK FX Procedure: RIGHT HIP ENDOPROSTHESIS Post-Op Diagnosis: SAME Primary Surgeon: Jeanette GOVEA MD Software Sales: NONE Anesthesia Type: General ET tube Complications: No complications Estimated Blood Loss (in cc): 150 Drains, Catheters, Devices: BIOMET HIP FRACTURE ENDO SYSTEM SEE DICTATION Plan of Care: ADMIT TO HOSPITALIST SVC WITH CLOSE ORTHO MGT. DVT PROPHYLAXIS, POSTERIOR HIP PRECATIONS, IS Q1H WHEN AWAKE, ASSIST AND ASSIST DEVICE FOR XFER AND AMB, PT, OT, SW.
[2019-05-04] MEDS: ASPIRIN 325 MG TABLET PO SCH (16:13)
[2019-05-04] MEDS: ceFAZolin 2 GM in SODIUM CHLORIDE 0.9% 100ML 100 ML IV SCH ×2 (16:13→23:33)
[2019-05-04] MEDS ORDERED: SODIUM CHLORIDE FLUSH 0.9% 10 ML SYRINGE IVP SCH (17:00)
[2019-05-04] MEDS: ACETAMINOPHEN 1,000 MG/100 ML 100 ML IV PRN (18:38)
[2019-05-05] MEDS: HYDROmorphone 1 MG/ML SYRINGE IVP PRN (02:02)
[2019-05-05 05:50] LABS: BASOPHILS # (AUTO) 0.1 10^3/uL (0.0-0.1); BASOPHILS % (AUTO) 0.4 %; EOSINOPHILS # (AUTO) 0.7 10^3/uL (0.0-0.7); EOSINOPHILS % (AUTO) 5.8 %; HGB - HEMOGLOBIN 11.8 g/dL (12.0-16.0); LYMPHOCYTES # (AUTO) 1.3 10^3/uL (1.5-3.5); LYMPHOCYTES % (AUTO) 11.6 %; MEAN CORPUSCULAR HEMOGLOBIN 30.9 pg (27.0-31.0); MEAN CORPUSCULAR HGB CONC 33.2 g/dL (32.0-36.0); MEAN CORPUSCULAR VOLUME 92.9 fL (81.0-99.0); MEAN PLATELET VOLUME 9.3 fL (7.9-10.8); MONOCYTES # (AUTO) 0.6 10^3/uL (0.0-1.0); MONOCYTES % (AUTO) 5.3 %; NEUTROPHILS # (AUTO) 8.6 10^3/uL (1.5-6.6); NEUTROPHILS % (AUTO) 76.4 %; PLT - PLATELET COUNT 205 10^3/uL (130-450); RED BLOOD COUNT 3.82 10^6/uL (4.20-5.40); RED CELL DISTRIBUTION WIDTH 13.1 % (12.0-15.0); WHITE BLOOD COUNT 11.2 x10^3/uL (4.8-10.8)
[2019-05-05 06:03] LABS: ALBUMIN 3.1 g/dL (3.2-5.5); ALBUMIN/GLOBULIN RATIO 1.2 (1.0-2.2); BILIRUBIN,TOTAL 0.7 mg/dL (0.2-1.0); CALCIUM 8.5 mg/dL (8.5-10.3); CREATININE 0.5 mg/dL (0.4-1.0); TOTAL PROTEIN 5.7 g/dL (6.7-8.2)
[2019-05-05] MEDS: LEVOTHYROXINE 75 MCG TABLET PO SCH (06:48)
[2019-05-05] MEDS: SODIUM CHLORIDE FLUSH 0.9% 10 ML SYRINGE IVP SCH ×3 (10:05→23:28)
[2019-05-05] MEDS: ACETAMINOPHEN 1,000 MG/100 ML 100 ML IV PRN (10:05)
[2019-05-05] MEDS: ASPIRIN 325 MG TABLET PO SCH ×2 (10:06→17:00)
[2019-05-05] MEDS: FAMOTIDINE 20 MG TABLET PO SCH ×2 (10:07→21:55)
[2019-05-05] MEDS: CALCIUM CARBONATE CHEW 500 MG TABLET PO SCH ×2 (10:07→21:55)
[2019-05-05] MEDS: polyethylene glycoL 3350 17 GM PACKET PO SCH ×2 (10:08→14:35)
--- NOTE | 2019-05-05 11:05 | PROVIDER PROGRESS NOTE ---
Subjective - Prog Note Date Prog Note Date: 05/05/19 Prog Note Time: 11:04 - Subjective Pt reports feeling: Improved Subjective: Shyann states she slept well, and has no pain while in bed. PT evaluation today went well. She agrees to consume all meals in the chair for the rest of her stay. Up for much of the day, lots of visitors. Patient has a scant red area to her post-op site, no pain, no new cough, no dizziness, no SOB or fevers. If IV access is lost, we will leave her IV out. Current Medications - Current Medications Current Medications: Active Medications: Acetaminophen (Tylenol) 650 - 975 mg PO Q4HR PRN Hydrocodone Bitart/Acetaminophen ([place] 5/325) 1 tab PO Q4HR PRN Aspirin ([place]) 325 mg PO BIDWM CARLOS Calcium Carbonate/Glycine (Tums) 500 mg PO BID CARLOS Famotidine (Pepcid) 20 mg PO BID CARLOS Hydromorphone HCl (Dilaudid Inj Syringe) 1 mg IVP Q2HR PRN Promethazine HCl 25 mg/ Sodium (Chloride) 51 mls @ 100 mls/hr IV Q6H PRN Levothyroxine Sodium (Synthroid) 75 mcg PO QDAC CARLOS Ondansetron HCl (Zofran Inj) 4 mg IVP Q6HR PRN Polyethylene Glycol (Miralax) 17 gm PO DAILY CARLOS Prochlorperazine Edisylate (Compazine Inj) 10 mg IVP Q6HR PRN Senna (Senokot) 8.6 mg PO BID CARLOS Zolpidem Tartrate (Ambien) 5 mg PO QPM PRN HOME meds: Cholecalciferol (Vitamin D3) [Vitamin D3] 1 tab PO DAILY 05/03/19 Glucosamine HCl 1,500 mg PO DAILY 05/03/19 Levothyroxine [Synthroid] 75 mcg PO DAILY 05/03/19 Loratadine 10 mg PO DAILY 05/03/19 Multivitamin [Theragran] 1 tab PO DAILY 05/03/19 Naproxen Sodium [Aleve] 220 mg PO QPM 05/03/19 Omeprazole 20 mg PO DAILY 05/03/19 Zolpidem [Ambien] 2.5 mg PO QPM PRN 05/03/19 Objective - Vital Signs/Intake & Output Reviewed Vital Signs: Yes Vital Signs: Vital Signs x48h Temp Pulse Resp BP Pulse Ox 05/05/19 08:00 36.9 C 104 H 18 139/72 H 92 05/05/19 05:30 37 C 105 H 16 138/63 H 97 Intake & Output: Intake & Output 05/02/19 05/03/19 05/04/19 05/05/19 23:59 23:59 23:59 23:59 Intake Total 6138.623 6418.502 340 Output Total 1400 1405 Balance 1210.640 0846.502 -1065 - Objective General Appearance: positive: No acute distress, Alert Eyes Bilateral: positive: Normal inspection, PERRL Eyes: OU Conjunctivae pale ENT: positive: Pharynx nml, No signs of dehydration Neck: positive: No JVD, Trachea midline Respiratory: positive: Chest non-tender, No respiratory distress, Breath sounds nml Cardiovascular: positive: Regular rate & rhythm, No gallop, Systolic murmur Peripheral Pulses: 1+ Radial (R), 1+ Radial (L), 1+ Femoral (R), 1+ Femoral (L) Abdomen: positive: Non-tender, Nml bowel sounds Back: positive: Nml inspection Skin: positive: No rash, Warm, Dry Extremities: positive: No pedal edema, Joint swelling (right hip expected post op swelling), Other (scant redness-at post-op site, marked on skin for further monitoring, no obvious drainage) Neurologic/Psychiatric: positive: Oriented x3, CN's nml (2-12), Motor nml, Sensation nml, Mood/affect nml Reflexes: Bicep (R): 3+, Bicep (L): 3+ - Lab Results Fish Bones: 05/05/19 05:25 05/05/19 05:25 Other Labs: Lab Results x24hrs 05/05/19 05/05/19 Range/Units 05:25 05:25 WBC 11.2 H (4.8-10.8) x10^3/uL RBC 3.82 L (4.20-5.40) 10^6/uL Hgb 11.8 L (12.0-16.0) g/dL Hct 35.5 L (37.0-47.0) % MCV 92.9 (81.0-99.0) fL MCH 30.9 (27.0-31.0) pg MCHC 33.2 (32.0-36.0) g/dL RDW 13.1 (12.0-15.0) % Plt Count 205 (130-450) 10^3/uL MPV 9.3 (7.9-10.8) fL Neut # (Auto) 8.6 H (1.5-6.6) 10^3/uL Lymph # (Auto) 1.3 L (1.5-3.5) 10^3/uL [place] # (Auto) 0.6 (0.0-1.0) 10^3/uL Eos # (Auto) 0.7 (0.0-0.7) 10^3/uL Baso # (Auto) 0.1 (0.0-0.1) 10^3/uL Absolute Nucleated RBC 0.00 x10^3/uL Nucleated RBC % 0.0 /100WBC Sodium 138 (135-145) mmol/L Potassium 3.9 (3.5-5.0) mmol/L Chloride 102 (101-111) mmol/L Carbon Dioxide 25 (21-32) mmol/L Anion Gap 11.0 (6-13) BUN 11 (6-20) mg/dL Creatinine 0.5 (0.4-1.0) mg/dL Estimated GFR (MDRD) 119 (>89) Glucose 120 H (70-100) mg/dL Calcium 8.5 (8.5-10.3) mg/dL Total Bilirubin 0.7 (0.2-1.0) mg/dL AST 21 (10-42) IU/L ALT 13 (10-60) IU/L Alkaline Phosphatase 42 (42-121) IU/L Total Protein 5.7 L (6.7-8.2) g/dL Albumin 3.1 L (3.2-5.5) g/dL Globulin 2.6 (2.1-4.2) g/dL Albumin/Globulin Ratio 1.2 (1.0-2.2) ABX Reporting Has patient been on IV antibiotics over the past 48 hours?: No Assessment/Plan - Problem List (1) Fracture of femoral neck, right Impression: - Imaging in the ED showed a mildly displaced right femoral neck fracture, possible subtle non-displaced fracture of the right pubic root -Dr. Zaragoza was consulted by the ED physician, Hospitalist to be the admitting service, Orthopedic surgery to consult -Surgical repair on 05/04/2019 -Follow post-operative recommendations, PT/OT, social work for D/C planning Post operative state -Surgical repair of right hip on 05/04/2019 -No post op complications, scant redness noted around dressing, marked for further monitoring -Continue PT daily, social work to choice for potential SNF rehab Hypertension -Patient notes that in her younger years she had more stress in her life and was on HCTZ and one other pill, but has since not needed anything for blood pressure -B/P elevated in the ED at 156/71, heart rate 90 -Murmur heard on exam, concerning for valve abnormalities, echo is ordered for the AM -Preliminary echo shows mild diastolic dysfunction, mild mitral regurg, preserved EF -Consider antihypertensive post op, monitor vital signs Insomnia -Patient states she takes Ambien at home -Increased Ambien to 5 mg tonight -Notes that her family had a long history of sleep problems -Continue while in the hospital GERD -Patient takes PPI for her heart burn -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
[2019-05-05] MEDS ORDERED: KETOROLAC 15 MG/ML VIAL IVP PRN (11:07)
[2019-05-05] MEDS: HYDROcod/ACETAM 5/325 MG TABLET PO PRN (14:34)
[2019-05-05] MEDS: SENNA 8.6 MG TABLET PO SCH ×2 (14:35→21:55)
--- NOTE | 2019-05-05 15:24 | PROVIDER PROGRESS NOTE ---
Subjective - Prog Note Date Prog Note Date: 05/05/19 - Subjective Pt reports feeling: Improved (pt in bed says feeling better and no pain, and that she just took a pain medicine, notes she has been oob most of the day and that she did well with pt) Objective - Vital Signs/Intake & Output Vital Signs: Vital Signs x48h Temp Pulse Pulse Pulse Pulse Pulse Resp 05/05/19 13:00 37.2 C 99 18 05/05/19 10:55 109 H 97 98 105 H 05/05/19 08:00 36.9 C 104 H 18 BP BP BP BP BP Pulse Ox 05/05/19 13:00 133/54 H 92 05/05/19 10:55 139/79 H 139/96 H 141/74 H 141/82 H 05/05/19 08:00 139/72 H 92 Intake & Output: Intake & Output 05/02/19 05/03/19 05/04/19 05/05/19 23:59 23:59 23:59 23:59 Intake Total 6862.548 7243.502 1176 Output Total 1400 1805 Balance 5728.037 2880.502 -629 - Lab Results Fish Bones: 05/05/19 05:25 05/05/19 05:25 Other Labs: Lab Results x24hrs 05/05/19 05/05/19 Range/Units 05:25 05:25 WBC 11.2 H (4.8-10.8) x10^3/uL RBC 3.82 L (4.20-5.40) 10^6/uL Hgb 11.8 L (12.0-16.0) g/dL Hct 35.5 L (37.0-47.0) % MCV 92.9 (81.0-99.0) fL MCH 30.9 (27.0-31.0) pg MCHC 33.2 (32.0-36.0) g/dL RDW 13.1 (12.0-15.0) % Plt Count 205 (130-450) 10^3/uL MPV 9.3 (7.9-10.8) fL Neut # (Auto) 8.6 H (1.5-6.6) 10^3/uL Lymph # (Auto) 1.3 L (1.5-3.5) 10^3/uL [place] # (Auto) 0.6 (0.0-1.0) 10^3/uL Eos # (Auto) 0.7 (0.0-0.7) 10^3/uL Baso # (Auto) 0.1 (0.0-0.1) 10^3/uL Absolute Nucleated RBC 0.00 x10^3/uL Nucleated RBC % 0.0 /100WBC Sodium 138 (135-145) mmol/L Potassium 3.9 (3.5-5.0) mmol/L Chloride 102 (101-111) mmol/L Carbon Dioxide 25 (21-32) mmol/L Anion Gap 11.0 (6-13) BUN 11 (6-20) mg/dL Creatinine 0.5 (0.4-1.0) mg/dL Estimated GFR (MDRD) 119 (>89) Glucose 120 H (70-100) mg/dL Calcium 8.5 (8.5-10.3) mg/dL Total Bilirubin 0.7 (0.2-1.0) mg/dL AST 21 (10-42) IU/L ALT 13 (10-60) IU/L Alkaline Phosphatase 42 (42-121) IU/L Total Protein 5.7 L (6.7-8.2) g/dL Albumin 3.1 L (3.2-5.5) g/dL Globulin 2.6 (2.1-4.2) g/dL Albumin/Globulin Ratio 1.2 (1.0-2.2) - Other Results/Comments Other Results/Comments: right silver hip dressing cdi no surrounding erythema, thigh and calf s/nt. toe s/ankle up. no pain with gentle hip motion. Assessment/Plan - Problem List (1) Hip fracture, right Impression: patient doing well pod 1. cont analgesics, posterior hip precautions with wbat RLE, foot pumps while in bed, oob with pt/ot/meals/chair, assist and assist device prn,. dressing left intact until 10-14 days post op unless fails, soiled or saturated cont plan per Hospitalist team. ok for DC to SNF from ortho perspective pending clear PT and bed avail when dc'd f/u ortho office 10-14 days post op or sooner prn Qualifiers: Encounter type: initial encounter Fracture type: closed Qualified Code(s): S72.001A - Fracture of unspecified part of neck of right femur, initial encounter for closed fracture
[2019-05-05] MEDS: ZOLPIDEM 5 MG TABLET PO PRN (21:55)
[2019-05-06 05:28] LABS: BASOPHILS # (AUTO) 0.1 10^3/uL (0.0-0.1); BASOPHILS % (AUTO) 0.5 %; EOSINOPHILS # (AUTO) 0.9 10^3/uL (0.0-0.7); EOSINOPHILS % (AUTO) 7.9 %; HGB - HEMOGLOBIN 11.5 g/dL (12.0-16.0); LYMPHOCYTES # (AUTO) 1.5 10^3/uL (1.5-3.5); LYMPHOCYTES % (AUTO) 13.6 %; MEAN CORPUSCULAR HEMOGLOBIN 30.4 pg (27.0-31.0); MEAN CORPUSCULAR VOLUME 92.1 fL (81.0-99.0); MEAN PLATELET VOLUME 9.4 fL (7.9-10.8); MONOCYTES # (AUTO) 0.9 10^3/uL (0.0-1.0); MONOCYTES % (AUTO) 8.2 %; NEUTROPHILS # (AUTO) 7.7 10^3/uL (1.5-6.6); NEUTROPHILS % (AUTO) 69.3 %; PLT - PLATELET COUNT 215 10^3/uL (130-450); RED BLOOD COUNT 3.78 10^6/uL (4.20-5.40)
[2019-05-06 05:41] LABS: CREATININE 0.4 mg/dL (0.4-1.0)
[2019-05-06 06:13] LABS: HB2 TOTAL 11.9 g/dL; HEMOGLOBIN A1C 0.44 g/dL; HEMOGLOBIN A1C % 5.5 % (4.6-6.2)
[2019-05-06] MEDS: LEVOTHYROXINE 75 MCG TABLET PO SCH (06:35)
[2019-05-06] MEDS ORDERED: PROPOFOL 200 MG/20 ML VIAL IVP ONE (08:50)
[2019-05-06] MEDS ORDERED: ONDANSETRON 4 MG/2 ML VIAL IVP ONE (08:50)
[2019-05-06] MEDS ORDERED: ROCURONIUM 50 MG/5 ML VIAL IVP ONE (08:50)
[2019-05-06] MEDS ORDERED: ePHEDrine 50 MG/ML VIAL IVP ONE (08:50)
[2019-05-06] MEDS ORDERED: MIDAZOLAM 2 MG/2 ML VIAL IVP ONE (08:50)
[2019-05-06] MEDS ORDERED: fentaNYL 100 MCG/2 ML VIAL IVP ONE (08:50)
[2019-05-06] MEDS ORDERED: LIDOCAINE-MPF 2% 5 ML VIAL IM ONE (08:50)
[2019-05-06] MEDS: SENNA 8.6 MG TABLET PO SCH ×2 (09:10→19:45)
[2019-05-06] MEDS: FAMOTIDINE 20 MG TABLET PO SCH ×2 (09:10→22:04)
[2019-05-06] MEDS: CALCIUM CARBONATE CHEW 500 MG TABLET PO SCH ×2 (09:10→22:04)
[2019-05-06] MEDS: ASPIRIN 325 MG TABLET PO SCH ×2 (09:10→16:49)
[2019-05-06] MEDS: SODIUM CHLORIDE FLUSH 0.9% 10 ML SYRINGE IVP SCH ×3 (09:13→23:50)
--- NOTE | 2019-05-06 09:32 | OPERATIVE REPORT ---
DATE OF SERVICE: 05/04/2019 Physician: Wyatt Zaragoza MD SURGEON: Wyatt Zaragoza MD ODD JOBS DAY WORKER: None. ANESTHESIOLOGISTS: Ravindra Fair CRNA and Manuel Knight CRNA. ANESTHESIA TYPE: General endotracheal anesthesia. ESTIMATED BLOOD LOSS: 150 mL. FLUIDS: 1300 mL lactated Ringer's. PREOPERATIVE ANTIBIOTICS: 2 grams of weight-based IV Ancef. COMPRESSION DEVICE: Contralateral left calf SCD boot. PREOPERATIVE DIAGNOSIS: Right displaced subcapital femoral neck fracture. POSTOPERATIVE DIAGNOSIS: Right displaced subcapital femoral neck fracture. PROCEDURES PERFORMED: Right hip unipolar endoprosthesis. HISTORY OF PRESENT ILLNESS AND INDICATIONS: Shyann is an 78-year-old female who sustained a fall re portedly on 05/02/2019 late, and then ultimately presented to the ER on 05/03/2019. She was found to have a subcapital femoral neck fracture with displacement. We discussed risks, benefits, and altern atives of operative and nonoperative treatment with her and her daughter. We talked about potential risks with the injury and potential operation, including but not limited to infection, wound problems , nerve or blood vessel injury, numbness, weakness, pain, stiffness, decreased range of motion, decre ased strength, decreased function, worsening of her condition, failure to "cure" the patient's proble m, iatrogenic injury, bleeding, blood loss, blood clot, blood clot embolus, positioning complications , anesthetic complications including but not limited to major cardiovascular or neurovascular complic ations, even , pneumonia, bedsores, potential leg length alignment or rotational abnormalities. We discussed the fact that there are many other risks not addressed here. They verbalized understan ding of the above. Diagram was drawn. They verbalize their wish to proceed with operative treatment . The patient gives informed consent. INTRAOPERATIVE FINDINGS: Noted to have a comminuted displaced subcapital femoral neck fracture. Pos t-trialing and final implantation, there is excellent range of motion with 90-degree flexion, interna l rotation greater than 60 degrees, and then hip extension and flexion of the knee greater than 90 de grees easily, good shucking, and leg length within 5 mm, rotation within 5 degrees post procedure. On 05/04/2019, patient was identified in her hospital room. She identifies the right hip as the oper ative site. This was signed by the operating surgeon. DESCRIPTION OF PROCEDURE: The patient received preoperative weight-based IV antibiotics and is broug ht to the operating room. General anesthesia is administered. She is placed left side down lateral decubitus position on a gel pad with appropriate positioning and padding to avoid iatrogenic injury. There is appropriately placed axillary roll to avoid encumbrance of the axilla. Head and neck are p rotected. Down leg is gel padded with SCD boot in place. At this point, the right lower extremity i s draped out and then pre-scrubbed with Hibiclens solution, followed by alcohol, followed by ChloraPr ep and drape. This is done under aseptic conditions. At this point, surgical pause identifies right hip as the operative site. An incision is made over t he proximal aspect of the greater trochanter, curvilinear in nature, through skin, spreading dissecti on carried out to the tensor fascia veronika IT band. Hemostasis is achieved and then the tensor fascia veronika and IT band are gently incised and Yates scissors are used to extend the incision distally, digit al dissection proximally. Then a Charnley retractor is used to expose the trochanter and the bursa. Bursa is reflected posteriorly and taken with a Florez and then the short external rotators are identif ied and sciatic nerve is protected posteriorly. At this time, along the piriformis an incision is ma de in line with that and then a T-shaped incision made with the short external rotators and capsule i n one layer. This is then tagged using #2 FiberWire. Then the capsule is reflected, revealing the fra cture and the head. At this point, the head is removed using a corkscrew device and a Florez, taking c are to avoid injury to the acetabulum. This is sized and then the acetabulum is examined. Loose debr is is removed and the neck cut is then made based on preoperative estimation. This is done with the help of a template to have appropriate angle. At this point, the size 43-mm head is trialed and note d to have excellent range of motion and suction fit. It is removed and then a box cutting osteotome is used to start the lateral most aspect of the entrance to the femur, followed by canal entering trevor brendan, followed by reaming up to a size 11 and then broaching up to a size 10. Trialing of the head wi th different sized necks is performed and a standard neck is selected. At this time, the broach is r emoved. The cement restrictor is placed to appropriate depth, and then the canal is prepared using a brush and pulsatile lavage. This is evacuated and then Vag packing is placed to allow meticulous dr gonzalez. A sponge is placed in the acetabulum and later removed. Then modern cement technique is used w ith pressurization to first place cement deeply in the canal of the femur, followed by placement of t he implant in the appropriate amount of version, and then is allowed to harden. Excess cement is rem hailey and once the cement is completely hardened, the trial implants are placed and noted to have appr opriate range of motion and stability. Trials are removed and then the Gunn taper is meticulously d ried and then the final implant is impacted into place. The hip is reduced and noted to reduce nicel y, again taken through range of motion and noted to have good range of motion and stability. At this point, the wound is copiously irrigated with pulsatile lavage. Hemostasis is achieved and then the short external rotators and capsule are closed through drill holes in the greater trochanter. They a re tied over the greater trochanter, thereby repairing the external rotators and capsule. At this poi nt, repeat copious irrigation is performed, and then IT band and TFL are closed using 0 Vicryl distal ly and absorbable suture proximally. Then irrigation is again performed. The subcutaneous layers are irrigated again and hemostasis achieved, and the skin is closed in layered fashion using 0 Vicryl, 2 -0 Vicryl, and then skin souleymane, followed by washing of skin, drying the skin and placement of a isabella bernardo dressing. The patient tolerated the procedure well. Instrument and sponge counts are correct. The patient is transferred to recovery room in stable condition after being extubated. The patient will follow prai garcia postoperative right hip endoprosthesis protocol with posterior hip precautions. She will be nallely ghtbearing as tolerated with assistance and assist device. She will be on perioperative DVT prophyla xis, mechanical and chemical, perioperative analgesics and antibiotics. [facility] with close orthopedic management. Attempt is made to find the patient's daughter in the waiting room. She is not available, nor in the patient's room. Attempt is made to call the patient's daughter, though she is unavailable and nonid entifying message left. ORTHOPEDIC IMPLANTS: 1. [employer]omet [employer] Endo II system, size 43 mm Endo II head component. 2. [employer] Endo II hip system, type 1 taper standard neck. 3. Biomet Echo fracture hip system standard femoral stem, size 7 x 120 mm. 4. Biomet size 10 distal stem centralizer. 5. Refobacin bone cement x2. 6. Gotham universal cement restrictor disposable, size medium. TD: 05/06/2019 08:15
[2019-05-06] MEDS: HYDROcod/ACETAM 5/325 MG TABLET PO PRN ×3 (11:12→22:03)
--- NOTE | 2019-05-06 16:55 | PROVIDER PROGRESS NOTE ---
Subjective - Prog Note Date Prog Note Date: 05/06/19 - Subjective Pt reports feeling: Improved (Patient is woken up this morning and says she has no hip pain. She says she got up yesterday afternoon as well and is doing well with her transfers and ambulation. Says he is comfortable with medications prescribed) Objective - Vital Signs/Intake & Output Vital Signs: Vital Signs x48h Temp Pulse Pulse Pulse Pulse Pulse Resp 05/06/19 16:00 36.7 C 105 H 16 05/06/19 11:40 37.2 C 101 H 20 05/06/19 10:01 109 H 97 98 105 H BP BP BP BP BP Pulse Ox 05/06/19 16:00 120/57 L 97 05/06/19 11:40 113/93 H 96 05/06/19 10:01 142/74 H 139/96 H 141/74 H 141/82 H Intake & Output: Intake & Output 05/03/19 05/04/19 05/05/19 05/06/19 23:59 23:59 23:59 23:59 Intake Total 7584.287 6329.502 1406 1140 Output Total 1400 2305 Balance 7874.013 9743.502 -899 1140 - Lab Results Fish Bones: 05/06/19 04:45 05/06/19 04:45 Other Labs: Lab Results x24hrs 05/06/19 05/06/19 05/06/19 Range/Units 04:45 04:45 04:45 WBC 11.0 H (4.8-10.8) x10^3/uL RBC 3.78 L (4.20-5.40) 10^6/uL Hgb 11.5 L (12.0-16.0) g/dL Hct 34.8 L (37.0-47.0) % MCV 92.1 (81.0-99.0) fL MCH 30.4 (27.0-31.0) pg MCHC 33.0 (32.0-36.0) g/dL RDW 13.0 (12.0-15.0) % Plt Count 215 (130-450) 10^3/uL MPV 9.4 (7.9-10.8) fL Neut # (Auto) 7.7 H (1.5-6.6) 10^3/uL Lymph # (Auto) 1.5 (1.5-3.5) 10^3/uL [place] # (Auto) 0.9 (0.0-1.0) 10^3/uL Eos # (Auto) 0.9 H (0.0-0.7) 10^3/uL Baso # (Auto) 0.1 (0.0-0.1) 10^3/uL Absolute Nucleated RBC 0.00 x10^3/uL Nucleated RBC % 0.0 /100WBC Sodium 137 (135-145) mmol/L Potassium 3.7 (3.5-5.0) mmol/L Chloride 102 (101-111) mmol/L Carbon Dioxide 27 (21-32) mmol/L Anion Gap 8.0 (6-13) BUN 15 (6-20) mg/dL Creatinine 0.4 (0.4-1.0) mg/dL Estimated GFR (MDRD) 154 (>89) Glucose 117 H (70-100) mg/dL Glycated Hemoglobin 5.5 (4.6-6.2) % Estim Average Glucose 111 H (70-100) Calcium 9.0 (8.5-10.3) mg/dL - Other Results/Comments Other Results/Comments: Patient's right lower extremity hip incision dressing is dry there is slight ecchymosis towards the posterior aspect seen through the clear dressing and there is a nga made by nursing below the incision though no erythema or ecchymosis noted within this nga. Thigh and calf soft nontender abduction pillow is in place. Foot pumps in place. Patient remains neurovascularly intact distally and is able to flex and extend toes ankle and knee. She has no pain with gentle hip motion. Assessment/Plan - Problem List (1) Hip fracture, right Impression: Patient is stable from orthopedic perspective postoperative day #2 status post right hip endoprosthesis No signs or symptoms of infection or DVT at this time Please continue posterior hip precautions and wbat rle with assist and assist device. continue mechanical and chemical DVT prophylaxis. Continue incentive spirometer every hour when awake Continue physical therapy, Occupational Therapy, social work consult for SNF on discharge Appreciate above hospitalist management. Qualifiers: Encounter type: initial encounter Fracture type: closed Qualified Co de(s): S72.001A - Fracture of unspecified part of neck of right femur, initial encounter for closed fracture
--- NOTE | 2019-05-06 17:19 | PROVIDER PROGRESS NOTE ---
Subjective - Prog Note Date Prog Note Date: 05/06/19 Prog Note Time: 17:16 - Subjective Pt reports feeling: Improved Subjective: Shyann has no complaints and got some more sleep overnight. She has no new complaints. She has made more progress with PT, and we are determining her pain medication needs. Objective - Vital Signs/Intake & Output Reviewed Vital Signs: Yes Vital Signs: Vital Signs x48h Temp Pulse Pulse Pulse Pulse Pulse Resp 05/06/19 16:00 36.7 C 105 H 16 05/06/19 11:40 37.2 C 101 H 20 05/06/19 10:01 109 H 97 98 105 H BP BP BP BP BP Pulse Ox 05/06/19 16:00 120/57 L 97 05/06/19 11:40 113/93 H 96 05/06/19 10:01 142/74 H 139/96 H 141/74 H 141/82 H Intake & Output: Intake & Output 05/03/19 05/04/19 05/05/19 05/06/19 23:59 23:59 23:59 23:59 Intake Total 0853.511 5611.502 1406 1140 Output Total 1400 2305 Balance 8775.040 0435.502 -899 1140 - Objective General Appearance: positive: No acute distress, Alert Eyes Bilateral: positive: PERRL, No lid inflammation ENT: positive: Pharynx nml, No signs of dehydration Neck: positive: No JVD, Trachea midline Respiratory: positive: Chest non-tender, No respiratory distress, Breath sounds nml Cardiovascular: positive: Regular rate & rhythm, No gallop, Tachycardia Peripheral Pulses: 1+ Radial (R), 1+ Radial (L), 1+ Dorsalis pedis (R), 1+ Dorsalis pedis (L) Abdomen: positive: Non-tender, Nml bowel sounds, Other (rounded, soft) Back: positive: Nml inspection Skin: positive: Color nml, No rash, Warm, Dry Extremities: positive: No pedal edema, Joint swelling (right hip, no new bleeding, prior redness has resolved, likely due to her ice pack) Neurologic/Psychiatric: positive: Oriented x3, CN's nml (2-12), Motor nml, Sensation nml, Mood/affect nml Reflexes: Bicep (R): 3+, Bicep (L): 3+ - Lab Results Fish Bones: 05/07/19 10:36 05/07/19 10:36 Other Labs: Lab Results x24hrs 05/06/19 05/06/19 05/06/19 Range/Units 04:45 04:45 04:45 WBC 11.0 H (4.8-10.8) x10^3/uL RBC 3.78 L (4.20-5.40) 10^6/uL Hgb 11.5 L (12.0-16.0) g/dL Hct 34.8 L (37.0-47.0) % MCV 92.1 (81.0-99.0) fL MCH 30.4 (27.0-31.0) pg MCHC 33.0 (32.0-36.0) g/dL RDW 13.0 (12.0-15.0) % Plt Count 215 (130-450) 10^3/uL MPV 9.4 (7.9-10.8) fL Neut # (Auto) 7.7 H (1.5-6.6) 10^3/uL Lymph # (Auto) 1.5 (1.5-3.5) 10^3/uL [place] # (Auto) 0.9 (0.0-1.0) 10^3/uL Eos # (Auto) 0.9 H (0.0-0.7) 10^3/uL Baso # (Auto) 0.1 (0.0-0.1) 10^3/uL Absolute Nucleated RBC 0.00 x10^3/uL Nucleated RBC % 0.0 /100WBC Sodium 137 (135-145) mmol/L Potassium 3.7 (3.5-5.0) mmol/L Chloride 102 (101-111) mmol/L Carbon Dioxide 27 (21-32) mmol/L Anion Gap 8.0 (6-13) BUN 15 (6-20) mg/dL Creatinine 0.4 (0.4-1.0) mg/dL Estimated GFR (MDRD) 154 (>89) Glucose 117 H (70-100) mg/dL Glycated Hemoglobin 5.5 (4.6-6.2) % Estim Average Glucose 111 H (70-100) Calcium 9.0 (8.5-10.3) mg/dL ABX Reporting Has patient been on IV antibiotics over the past 48 hours?: No Assessment/Plan - Problem List (1) Fracture of femoral neck, right Impression: - Imaging in the ED showed a mildly displaced right femoral neck fracture, possible subtle non-displaced fracture of the right pubic root -Dr. Zaragoza was consulted by the ED physician, Hospitalist to be the admitting service, Orthopedic surgery to consult -Surgical repair on 05/04/2019 -Follow post-operative recommendations, PT/OT, social work for D/C planning Post operative state -Surgical repair of right hip on 05/04/2019 -No post op complications, scant redness now resolved -Continue PT daily, social work to choice for potential SNF rehab Osteoporosis -Noted on imaging of right hip upon arrival to the ED -Consider fosomax, patient teaching provided Hypertension -Patient notes that in her younger years she had more stress in her life and was on HCTZ and one other pill, but has since not needed anything for blood pressure -B/P elevated in the ED at 156/71, heart rate 90, now normal -Murmur heard on exam, concerning for valve abnormalities, echo is ordered for the AM -Echo shows mild diastolic dysfunction, mild mitral regurg, preserved EF -Consider antihypertensive post op, monitor vital signs Insomnia -Patient states she takes Ambien at home -Continues on Ambien to 5 mg -Notes that her family had a long history of sleep problems -Continue while in the hospital GERD -Patient takes PPI for her heart burn -PPI therapy if rn long term care can lead to bone loss (loss of magnesium) -Patient would like to stop her home PPI -Continue H2 brenna, anticipate sending a prescription to the pharmacy Hypothyroidism -Patient notes that she had a Hashimotos tumor, 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
[2019-05-06] MEDS: ZOLPIDEM 5 MG TABLET PO PRN (22:03)
[2019-05-07] MEDS: LEVOTHYROXINE 75 MCG TABLET PO SCH (05:58)
[2019-05-07] MEDS: SODIUM CHLORIDE FLUSH 0.9% 10 ML SYRINGE IVP SCH (08:20)
[2019-05-07] MEDS: FAMOTIDINE 20 MG TABLET PO SCH (09:00)
[2019-05-07] MEDS: CALCIUM CARBONATE CHEW 500 MG TABLET PO SCH (09:01)
[2019-05-07] MEDS: polyethylene glycoL 3350 17 GM PACKET PO SCH (09:01)
[2019-05-07] MEDS: ASPIRIN 325 MG TABLET PO SCH (09:01)
[2019-05-07] MEDS: SENNA 8.6 MG TABLET PO SCH (09:01)
[2019-05-07 10:43] LABS: HGB - HEMOGLOBIN 12.3 g/dL (12.0-16.0); MEAN CORPUSCULAR HEMOGLOBIN 30.6 pg (27.0-31.0); MEAN CORPUSCULAR HGB CONC 33.4 g/dL (32.0-36.0); MEAN CORPUSCULAR VOLUME 91.5 fL (81.0-99.0); RED BLOOD COUNT 4.02 10^6/uL (4.20-5.40); RED CELL DISTRIBUTION WIDTH 12.9 % (12.0-15.0); WHITE BLOOD COUNT 10.8 x10^3/uL (4.8-10.8)
[2019-05-07 11:04] LABS: MAGNESIUM 1.8 mg/dL (1.7-2.8)
[2019-05-07] MEDS ORDERED: MAGNESIUM OXIDE 400 MG TABLET PO SCH (11:18)
[2019-05-07 11:20] LABS: CREATININE 0.7 mg/dL (0.4-1.0)
--- NOTE | 2019-05-07 11:49 | Discharge Plan ---
"Discharge Plan for SNF / [facility] - Discharge Plan And Transition Orders Problem Reviewed?: Yes Disposition: 03 SNF DC/Xfer Condition: Good Allergies and Adverse Reactions: Allergies Allergy/AdvReac Type Severity Reaction Status Date / Time diphenhydramine AdvReac Unknown Verified 05/03/19 11:35 [From [facility]] Health Concerns: Fall Osteoporosis Right hip repair Weakness Plan of Treatment: Continue the full dose aspirin until after you see Orthopedic surgery outpatient Continue the Vitamin D3 as prior Start taking Magnesium, as it has been low while in the hospital Change the proton pump inhibitor to Pepcid, an H2 Sonia to prevent long term care social worker bone loss Start taking Fosomax for the next 3-5 year beginning on ~ 05/18/2019 Complete physical therapy at [facility], ask your family for help if needed Care Goals: Continue to heal after surgery Prevent infection by drinking enough fluids, staying active and performing the incentive spirometry Prevent falls Prevent ED visits or hospital stays Assessment: You were admitted to the hospital for a right hip repair after you fell while wearing your crock shoes in the kitchen. Dr. Zaragoza, orthopedic surgery repaired your right hip using an ENDOPROSTHESIS on 05/04/2019. You suffered no post operative complications. You progressed nicely with physical therapy and required minimal pain medication. A heart murmur was heard on my initial exam, which led to an echocardiogram. The echo showed age related left ventricular thickening and no significant abnormalities. If you ever need a blood pressure pill in the future, I suggest a beta sonia (metoprolol succinate) as it will cut down on the progression of the thickening. You were screened for diabetes, which was negative, which was indicated due to your age, and since your BMI is greater than 25 (currently 29). After finishing at rehab, I would like you to increase your steps per day as long as your body allows. For you osteoporosis, you should take fosomax, limit use to 3-5 years in your life time. This should be started in 2 weeks past your surgical repair. ~05/18/2019. You have been such a delight to take care of, and you are medically cleared to proceed with your rehabilitation stay. Prescription for Fosomax was sent to your pharmacy. - SNF / [facility] Transition Orders Admit to (Facility): Care Age Under the care of (Name): Isaak Downey/Dr. Delarosa Discharge Diagnosis: Fracture of femoral neck, right-no post-op complications, continues on daily ASA Post-operative state-Progressing well, stable Fall-Present on this admission, stable Insomnia-Chronic, stable, continues on Ambien GERD (gastroesophageal reflux disease)-Chronic, stopped PPI, started on H2 sonia, stable Hypothyroidism-Chronic, TSH normal at 4.91, stable, no changes to home dose Allergies-Chronic, stable Osteoporosis-Chronic, start Fosomax around 05/18/2019, prescription sent to patient's pharmacy, continues on D3 Grade I diastolic dysfunction-Found on echo from this hospital stay, if B/P control is needed, patient should be stared on a beta sonia (metoprolol succinate) to help prevent worsening of her LVH, stable LVH-Found on echo, stable, age related Mitral regurg-No significance, no symptoms, stable Weight on admission and: Monthly House Bowel Program: Yes Annual Influenza Vaccine (between Nov 11 and June 10): Yes Two-step PPD per [facility] [id number] or approved exception documents: Yes Orthopedic Orders: Please continue posterior hip precautions and weight bearing as tolerated to RLE with assist and assist device. Dressing left intact until 10-14 days post op unless fails, soiled or saturated. Follow up with the Ortho office 10-14 days post op or sooner if needed. Medication Orders: PLEASE REFER TO THE DISCHARGE MEDICATION LIST. Insulin Orders?: No - Medications New Prescriptions: Acetaminophen [Tylenol] 650 - 975 mg PO Q4HR PRN #90 tablet PRN Reason: Pain HYDROcod/ACETAM 5/325 [[place] 5/325] 1 tab PO Q4HR PRN #20 tablet PRN Reason: Pain Aspirin [Erick] 325 mg PO DAILYWM #30 tablet Famotidine [Pepcid AC] 20 mg PO BID #60 tablet Magnesium Oxide [Mag Ox] 400 mg PO BIDWM #60 tablet Senna [Senokot] 8.6 mg PO BID #60 tablet - Diet Texture: Regular Liquids: Thin May have monthly special meal: Yes - Therapies | Activity Therapy: Evaluation | Treat if indicated: PT, OT Rehabilitation Potential: Maximize functional status, Return to independent living Activity: Activity as Tolerated Assistance Devices: Walker Follow Up: See your primary care provider within one week of discharge from [facility] [place]"
[2019-05-07 12:05] VITALS: BP 134/73
--- NOTE | 2019-05-07 14:36 | DISCHARGE SUMMARY ---
Discharge Summary Admit Date: 05/03/19 Discharge Date: 05/07/19 Discharging Provider: AMY Montes Code Status: Attempt Resuscitation Condition at Discharge: Good Discharge Disposition: SNF DC/Xfer Discharge Facility Name: Care Age of Dannielle - DIAGNOSES Discharge Diagnoses with Status of Each Condition: Fracture of femoral neck, right-no post-op complications, continues on daily ASA Post-operative state-Progressing well, stable Fall-Present on this admission, stable Insomnia-Chronic, stable, continues on Ambien GERD (gastroesophageal reflux disease)-Chronic, stopped PPI, started on H2 brenna, stable Hypothyroidism-Chronic, TSH normal at 4.91, stable, no changes to home dose Allergies-Chronic, stable Osteoporosis-Chronic, start Fosomax around 05/18/2019, prescription sent to patient's pharmacy, continues on D3 Grade I diastolic dysfunction-Found on echo from this hospital stay, if B/P control is needed, patient should be stared on a beta brenna (metoprolol succinate) to help prevent worsening of her LVH, stable LVH-Found on echo, stable, age related Mitral regurg-No significance, no symptoms, stable - HPI History of Present Illness: Shyann Morgan is a healthy appearing 78-year old white female with a past medical history of hypothyroidism, thyroid tumor, status post thyroidectomy, hypertension, uterine fibroids, status post hysterectomy at age 48, and insomnia. The patient was in her usual state of health when she accidentally slipped and fell backwards, while in her kitchen. She states that her sister is visiting from out of state, so she was cooking a meal for the two of them after spending the day in [employer] shopping. She states that she has never fallen or lost consciousness, that she knows of. She states she had no warning such as dizziness, confusion, chest pain, nausea, diaphoresis, or palpitations as she was about to fall. She believes that the kitchen floor may have had a tiny puddle of water on it and she was wearing crock shoes, which can be slippery, so that is how she ended up on the floor. She landed on her right elbow, right hip, right knee, clunked her head and neck on the floor, as well. She was very thankful that her sister was there, who quickly helped her up in a doggy style position, and back on her feet. Right away, she could not bear too much weight on the right leg without having horrible pain in her right hip. She did not think it was broken since she could bear some weight on it. When waking up this morning, she could not bear weight on her right leg, so she was brought to the ED via private car. Imaging in the ED showed a mildly displaced right femoral neck fracture, possible subtle non-displaced fracture of the right pubic root. No significant labs, no abnormal exam findings. Admit to inpatient with anticipation of surgery in the AM. - HOSPITAL COURSE Hospital Course: The patient was admitted to the hospital for a right hip repair after she fell while wearing her crock shoes in her kitchen. Dr. Zaragoza, orthopedic surgery repaired her right hip using an ENDOPROSTHESIS on 05/04/2019. She suffered no post operative complications. The patient progressed nicely with physical therapy and required minimal pain medication. A heart murmur was heard on my in itial exam, which led to an echocardiogram. The echo showed age related left ventricular thickening and no significant abnormalities. If B/P control is ever indicated, I suggest a beta brenna (metoprolol succinate) as it will cut down on the progression of the thickening. She was screened for diabetes, which was negative, which was indicated due to her age, and since her BMI was greater than 25 (currently 29). After finishing at rehab, I would like her to increase her steps per day as long as her body allows. For osteoporosis, she should take fosomax, limit use to 3-5 years in a life time. This should be started in 2 weeks past the surgical repair. ~05/18/2019. The patient was medically stable and transported via wheel chair van to start her rehab at [facility]. - ALLERGIES Allergies/Adverse Reactions: Allergies Allergy/AdvReac Type Severity Reaction Status Date / Time diphenhydramine AdvReac Unknown Verified 05/09/19 15:22 [From Benadryl] - MEDICATIONS Home Medications: Ambulatory Orders Medication Instructions Recorded Confirmed Cholecalciferol (Vitamin D3) 1 tab PO DAILY 05/03/19 [Vitamin D3] Glucosamine HCl 1,500 mg PO DAILY 05/03/19 05/03/19 Levothyroxine [Synthroid] 75 mcg PO DAILY 05/03/19 05/03/19 Loratadine 10 mg PO DAILY 05/03/19 05/03/19 Multivitamin [Theragran] 1 tab PO DAILY 05/03/19 05/03/19 Zolpidem [Ambien] 2.5 mg PO QPM PRN 05/03/19 05/03/19 Acetaminophen [Tylenol] 650 - 975 mg PO Q4HR PRN #90 tablet 05/07/19 Alendronate [Fosamax] 70 mg PO Q7D #90 tablet 05/07/19 Aspirin [Erick] 325 mg PO DAILYWM #30 tablet 05/07/19 Famotidine [Pepcid AC] 20 mg PO BID #60 tablet 05/07/19 HYDROcod/ACETAM 5/325 [[place] 5/325] 1 tab PO Q4HR PRN #20 tablet 05/07/19 Magnesium Oxide [Mag Ox] 400 mg PO BIDWM #60 tablet 05/07/19 Senna [Senokot] 8.6 mg PO BID #60 tablet 05/07/19 - PHYSICAL EXAM AT DISCHARGE General Appearance: positive: No acute distress, Alert Eyes Bilateral: positive: Normal inspection, PERRL ENT: positive: ENT inspection nml, Pharynx nml Neck: positive: Nml inspection, Thyroid nml, No JVD Respiratory: positive: Chest non-tender, No respiratory distress, Breath sounds nml Cardiovascular: positive: Regular rate & rhythm, No gallop, Systolic murmur Peripheral Pulses: positive: 2+ Abdomen: positive: Non-tender, Nml bowel sounds Back: positive: Nml inspection Skin: positive: Color nml, No rash, Warm, Dry Extremities: positive: No pedal edema, Joint swelling (right hip expected, post op) Neurologic/Psychiatric: positive: Oriented x3, CN's nml (2-12), Motor nml, Sensation nml, Mood/affect nml Reflexes: Bicep (R): 3+, Bicep (L): 3+ - LABS Result Diagrams: 05/07/19 10:36 05/07/19 10:36 - QUALITY (Female Hip Fx Only) Was patient sent home on osteoporosis medication?: Yes - FOLLOW UP Follow Up: Follow up with PCP within one week - TIME SPENT Time Spent in Discharge (Minutes): 55
[2019-05-08] MEDS ORDERED: ASPIRIN 325 MG TABLET PO SCH (08:00)
== END 2019-05-07 14:15 | DRG 470 ==
LOC: EDUNIT# → ED 10:58 → MS2 14:22
PROVIDERS: ADMIT Nurse Practitioner; ATTEND Nurse Practitioner
PROC: 0SRR0J9 Replacement of Right Hip Joint, Femoral Surface with Synthetic Substitute, Cemented, Open Approach (ICD-10-PCS; principal; 2019-05-04 08:00)
DX: S72.001A Fracture of unspecified part of neck of right femur, initial encounter for closed fracture (principal); M25.561 Pain in right knee; W01.0XXA Fall on same level from slipping, tripping and stumbling without subsequent striking against object, initial encounter; M80.051A Age-related osteoporosis with current pathological fracture, right femur, initial encounter for fracture; M85.88 Other specified disorders of bone density and structure, other site; E89.0 Postprocedural hypothyroidism; K21.9 Gastro-esophageal reflux disease without esophagitis; I11.9 Hypertensive heart disease without heart failure; R01.1 Cardiac murmur, unspecified; S50.01XA Contusion of right elbow, initial encounter; S80.01XA Contusion of right knee, initial encounter; W01.198A Fall on same level from slipping, tripping and stumbling with subsequent striking against other object, initial encounter; F51.04 Psychophysiologic insomnia; Y92.000 Kitchen of unspecified non-institutional (private) residence as the place of occurrence of the external cause; Z79.899 Other long term (current) drug therapy; Z91.09 Other allergy status, other than to drugs and biological substances
CPT/HCPCS: 36415; 70450; 72125; 73502; 73564; 80048; 80053; 83036; 83540; 83735; 84443; 84466; 85025; 85027; 85610; 85730; 86850; 86900; 86901; 93005; 93306; 97116; 97161; 97166; 97530; 97535; 99285; A9270; J0131; J1170; J7120

== ENCOUNTER 2019-05-09 15:11 | Emergency (ER) | payer MEDICARE, OTHER ==
--- NOTE | 2019-05-09 16:56 | Ultrasound Report ---
Reason: Right leg swelling Procedure Date: 05/09/2019 Accession Number: [id number] / [id number] Procedure: US - Duplex Ext Veins Right CPT Code: Final Report FULL RESULT: EXAM: RIGHT LOWER EXTREMITY VENOUS ULTRASOUND EXAM DATE: 05/09/2019 04:48 PM. CLINICAL HISTORY: Right leg swelling. COMPARISON: None. TECHNIQUE: Real-time sonographic vascular imaging was performed by the cereal chemist through the lower extremity utilizing both color-flow and Doppler spectral analysis. Multiple medical service representative static images were saved for review. FINDINGS: Common Femoral Vein (CFV): Normal. CFV-GSV Junction: Normal. Profunda Femoral Vein (PFV): Normal. Femoral Vein (FV) Prox: Normal. Femoral Vein (FV) Mid: Normal. Femoral Vein (FV) Dist: Normal. Popliteal Vein: Normal. Posterior Tibial Veins: Limited evaluation. No obvious DVT. Peroneal Veins: Limited evaluation. No obvious DVT. Other: Calf subcutaneous edema. IMPRESSION: No evidence for deep venous thrombosis. RADIA
[2019-05-09 17:12] LABS: BASOPHILS # (AUTO) 0.1 10^3/uL (0.0-0.1); BASOPHILS % (AUTO) 0.8 %; EOSINOPHILS # (AUTO) 0.6 10^3/uL (0.0-0.7); EOSINOPHILS % (AUTO) 6.1 %; HGB - HEMOGLOBIN 11.9 g/dL (12.0-16.0); LYMPHOCYTES % (AUTO) 18.7 %; MEAN CORPUSCULAR HEMOGLOBIN 30.4 pg (27.0-31.0); MEAN CORPUSCULAR HGB CONC 33.1 g/dL (32.0-36.0); MEAN CORPUSCULAR VOLUME 91.6 fL (81.0-99.0); MEAN PLATELET VOLUME 8.5 fL (7.9-10.8); MONOCYTES # (AUTO) 0.9 10^3/uL (0.0-1.0); MONOCYTES % (AUTO) 8.2 %; NEUTROPHILS % (AUTO) 65.7 %; PLT - PLATELET COUNT 341 10^3/uL (130-450); RED BLOOD COUNT 3.92 10^6/uL (4.20-5.40); RED CELL DISTRIBUTION WIDTH 12.7 % (12.0-15.0); WHITE BLOOD COUNT 10.6 x10^3/uL (4.8-10.8)
[2019-05-09 17:20] LABS: INR 1.1 (0.8-1.2); PT - PROTHROMBIN TIME 12.2 secs (9.9-12.6)
[2019-05-09 17:27] LABS: CALCIUM 9.2 mg/dL (8.5-10.3); CREATININE 0.6 mg/dL (0.4-1.0)
--- NOTE | 2019-05-09 19:01 | ED Physician Documentation ---
PD HPI LOWER EXT INJURY - Stated complaint Stated Complaint: R LEG PX - Chief complaint Chief Complaint: Ext Problem - History obtained from History obtained from: Patient - History of Present Illness PD HPI LOW EXT INJURY LOCATION: Right (She had a hip fracture, had it repaired and was [facility] a [facility]. They noted asymptomatic unilateral right leg swelling today. It does not bother her. 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: section, Hysterectomy - Present Medications Home Medications: Ambulatory Orders Medication Instructions Recorded Confirmed Cholecalciferol (Vitamin D3) 1 tab PO DAILY 05/03/19 [Vitamin D3] Glucosamine HCl 1,500 mg PO DAILY 05/03/19 05/03/19 Levothyroxine [Synthroid] 75 mcg PO DAILY 05/03/19 05/03/19 Loratadine 10 mg PO DAILY 05/03/19 05/03/19 Multivitamin [Theragran] 1 tab PO DAILY 05/03/19 05/03/19 Zolpidem [Ambien] 2.5 mg PO QPM PRN 05/03/19 05/03/19 Acetaminophen [Tylenol] 650 - 975 mg PO Q4HR PRN #90 tablet 05/07/19 Alendronate [Fosamax] 70 mg PO Q7D #90 tablet 05/07/19 Aspirin [Erick] 325 mg PO DAILYWM #30 tablet 05/07/19 Famotidine [Pepcid AC] 20 mg PO BID #60 tablet 05/07/19 HYDROcod/ACETAM 5/325 [[place] 5/325] 1 tab PO Q4HR PRN #20 tablet 05/07/19 Magnesium Oxide [Mag Ox] 400 mg PO BIDWM #60 tablet 05/07/19 Senna [Senokot] 8.6 mg PO BID #60 tablet 05/07/19 - Allergies Allergies/Adverse Reactions: Allergies Allergy/AdvReac Type Severity Reaction Status Date / Time diphenhydramine AdvReac Unknown Verified 05/09/19 15:22 [From [facility]] - Social History Does the pt smoke?: No Smoking Status: Never smoker Does the pt drink ETOH?: No Does the pt have substance abuse?: No - POLST Patient has POLST: No POLST Status: Full Code PD ED PE NORMAL - Vitals Vital signs reviewed: Yes - General General: Alert and oriented X 3, No acute distress - HEENT HEENT: PERRL, EOMI - Neck Neck: Supple, no meningeal sign, No bony TTP - Extremities Extremities: Other (She has pitting edema of the right calf, no cellulitis or tenderness.) - Neuro Neuro: Alert and oriented X 3, Normal speech Results - Vitals Vitals: Vital Signs - 24 hr 05/09/19 15:22 Temperature 36.5 C Heart Rate 92 Respiratory 18 Rate Blood Pressure 119/78 O2 Saturation 98 Oxygen O2 Source Room air - Labs Labs: Laboratory Tests 05/09/19 05/09/19 05/09/19 17:05 17:05 17:05 WBC 10.6 RBC 3.92 L Hgb 11.9 L Hct 35.9 L MCV 91.6 MCH 30.4 MCHC 33.1 RDW 12.7 Plt Count 341 MPV 8.5 Neut # (Auto) 7.0 H Lymph # (Auto) 2.0 [place] # (Auto) 0.9 Eos # (Auto) 0.6 Baso # (Auto) 0.1 Absolute Nucleated RBC 0.00 Nucleated RBC % 0.0 PT 12.2 INR 1.1 Sodium 136 Potassium 4.2 Chloride 98 L Carbon Dioxide 27 Anion Gap 11.0 BUN 15 Creatinine 0.6 Estimated GFR (MDRD) 96 Glucose 110 H Calcium 9.2 - Rads (name of study) RLE duplex Radiology: Final report received (no dvt) Departure - Departure Disposition: 01 Home, Self Care Clinical Impression: Pain in extremity Qualifiers: Extremity pain location: lower extremity Laterality: right Qualified Code(s): M79.604 - Pain in right leg Condition: Good Record reviewed to determine appropriate education?: Yes Instructions: ED Leg Swelling Unilateral Comments: I am glad you are happy with your care over the weekend, the care team involved is as follows: While you are in the emergency department with a broken hip your nurse was Jose Alejandro Olguin, and while on the floor, your main nurses were Beth Schultz Stephens, Jia Billingsley, Amada Bain. The emergency physician that took care of you was Dr. Billingsley and your surgeon was Dr. Zaragoza.
[2019-05-09 19:10] VITALS: BP 141/61
== END 2019-05-09 19:12 | disposition home or self-care (01) ==
LOC: ED 15:11
DX: M79.604 Pain in right leg (principal); I10 Essential (primary) hypertension
CPT/HCPCS: 36415; 80048; 85025; 85610; 99282; 99284

== ENCOUNTER 2020-01-03 13:54 | Outpatient (CLI) | payer MEDICARE, OTHER ==
--- NOTE | 2020-01-06 16:25 | Mammography Report ---
BILATERAL DIGITAL SCREENING MAMMOGRAM 3D/2D: 01/03/2020 CLINICAL: Routine screening. Comparison is made to exams dated: 05/24/2017 mammogram, 05/24/2016 mammogram, 05/14/2015 mammogram, 05/12 mammogram, and 07/27/2010 mammogram - [facility]. There are scattered fibrog landular elements in both breasts. No significant masses, calcifications, or other findings are seen in either breast. There has been no significant interval change. IMPRESSION: NEGATIVE There is no mammographic evidence of malignancy. A 1 year screening mammogram is recommended. This exam was interpreted at Station ID: [id number]. NOTE: For mammograms, a report in lay terms will be sent to the patient. Approximately 15% of breast malignancies will not be visualized mammographically. In the management of a palpable breast mass, a negative mammogram must not discourage biopsy of a clinically suspicious lesion. Electronically Signed By: Russ Boss M.D. aty/penrad:01/03/2020 16:26:15 ACR BI-RADS Category 1: Negative 3341F PARENCHYMAL PATTERN: (A) - The breast(s) demonstrate(s) scattered fibroglandular densities. BI-RADS CATEGORY: (1) - 1 RECOMMENDATION: (ANNUAL) - Recommend routine annual screening mammography. [id number] 1 year screening LATERALITY: (B)
== END 2020-01-03 13:55 | disposition home or self-care (01) ==
LOC: DI 13:54
PROVIDERS: ATTEND Internal Medicine
DX: Z12.31 Encounter for screening mammogram for malignant neoplasm of breast (principal)
CPT/HCPCS: 77063; 77067

== ENCOUNTER 2021-04-21 10:40 | Outpatient (CLI) | payer MEDICARE, OTHER ==
--- NOTE | 2021-04-21 13:40 | DEXA Report ---
PROCEDURE: Dexa Spine and/or Hip INDICATIONS: OSTEOPOROSIS TECHNIQUE: Dual energy x-ray absorptiometry (DXA) was performed on a [employer] System. Regions measur ed are the AP Spine, femoral neck, and if needed forearm. COMPARISON: 05/14/2017. FINDINGS: Lumbar Spine: Bone Mineral Density 1.231 g/cm/cm,T score 0.4. There is interval 4.2% increase in total lumbar sp ine bone mineral density. Left Hip: Bone Mineral Density 0.795 g/cm/cm,T score -1.7. There is interval 1.9% increase in total left hip b one mineral density. Left Femoral Neck: Bone Mineral Density 0.703 g/cm/cm, T score -2.4. (T score greater or equal to -1.0: NORMAL) (T score from -1.1 to -2.4: OSTEOPENIA) (T score less than or equal to -2.5 to: OSTEOPOROSIS) Impression: Osteopenia. Patients with diagnosis of osteoporosis or osteopenia should have regular bone mineral density assess ment. For those eligible for Medicare, routine testing is allowed once every 2 years. Testing frequ ency can be increased for patients who have rapidly progressing disease or for those who are receivin g medical therapy to restore bone mass. Reviewed by: Stef Harris MD on 04/21/2021 1:38 PM PST Approved by: Stef Harris MD on 04/21/2021 1:38 PM PST Station ID: [id number]
== END 2021-04-21 10:41 | disposition home or self-care (01) ==
LOC: DI 10:40
PROVIDERS: ATTEND Physician Assistant
DX: M81.0 Age-related osteoporosis without current pathological fracture (principal); M85.89 Other specified disorders of bone density and structure, multiple sites

== ENCOUNTER 2021-06-02 12:59 | Outpatient (CLI) | payer MEDICARE, OTHER ==
--- NOTE | 2021-06-03 11:00 | Mammography Report ---
BILATERAL DIGITAL SCREENING MAMMOGRAM 3D/2D: 06/02/2021 CLINICAL: Routine screening. Comparison is made to exams dated: 01/03/2020 mammogram, 05/24/2017 mammogram, 05/24/2016 mammogram, a nd 05/14/2015 mammogram - [facility]. There are scattered fibroglandular elements in both breasts. No significant masses, calcifications, or other findings are seen in either breast. There has been no significant interval change. IMPRESSION: NEGATIVE There is no mammographic evidence of malignancy. A 1 year screening mammogram is recommended. This exam was interpreted at Station ID: [id number]. NOTE: For mammograms, a report in lay terms will be sent to the patient. Approximately 15% of breast malignancies will not be visualized mammographically. In the management of a palpable breast mass, a negative mammogram must not discourage biopsy of a clinically suspicious lesion. Electronically Signed By: Russ Boss M.D. aty/penrad:06/02/2021 17:25:26 ACR BI-RADS Category 1: Negative 3341F PARENCHYMAL PATTERN: (A) - The breast(s) demonstrate(s) scattered fibroglandular densities. BI-RADS CATEGORY: (1) - 1 RECOMMENDATION: (ANNUAL) - Recommend routine annual screening mammography. [id number] 1 year screening LATERALITY: (B)
== END 2021-06-02 13:00 | disposition home or self-care (01) ==
LOC: DI.S 12:59
PROVIDERS: ATTEND Physician Assistant
DX: Z12.31 Encounter for screening mammogram for malignant neoplasm of breast (principal)

== ENCOUNTER 2022-10-03 09:57 | Outpatient (CLI) | payer MEDICARE, OTHER ==
--- NOTE | 2022-10-03 13:32 | XRAY Report ---
PROCEDURE: Shoulder 3 View RT INDICATIONS: R SHOULDER PX,L KNEE PX TECHNIQUE: 3 views of the shoulder were acquired. COMPARISON: None. FINDINGS: Bones: No fractures or dislocations. No suspicious bony lesions. Severe glenohumeral joint degener ation and mild, clavicular joint degeneration. There is superior migration of humeral head, likely se condary to chronic rotator cuff tendon tear. Visualized ribs appear intact. Soft tissues: Calcific densities over the humeral head and are highly suspicious for rotator cuff ca lcific tendinitis. IMPRESSION: 1. Severe osteoarthritis. 2. Rotator cuff tendinopathy. Reviewed by: Iglesia Lee MD on 10/03/2022 12:01 PM PDT Approved by: Iglesia Lee MD on 10/03/2022 12:01 PM PDT Station ID: [id number]
--- NOTE | 2022-10-03 13:32 | XRAY Report ---
PROCEDURE: Knee 3 View LT INDICATIONS: R SHOULDER PX,L KNEE PX TECHNIQUE: 3 views of the left knee(s) were acquired. COMPARISON: None. FINDINGS: Bones: No fractures or dislocations. No suspicious bony lesions. Severe tricompartmental knee joint degeneration, most pronounced in the lateral femorotibial compartment. Soft tissues: Small knee joint effusion. No suspicious soft tissue calcifications or masses. IMPRESSION: Severe osteoarthritis. Reviewed by: Iglesia Lee MD on 10/03/2022 12:06 PM PDT Approved by: Iglesia Lee MD on 10/03/2022 12:06 PM PDT Station ID: [id number]
== END 2022-10-03 09:58 | disposition home or self-care (01) ==
LOC: DI 09:57
PROVIDERS: ATTEND Physician Assistant
DX: M19.011 Primary osteoarthritis, right shoulder (principal); M75.91 Shoulder lesion, unspecified, right shoulder; M17.12 Unilateral primary osteoarthritis, left knee; M25.462 Effusion, left knee

== ENCOUNTER 2022-12-08 08:00 | Outpatient (CLI) | payer MEDICARE, OTHER ==
--- NOTE | 2022-12-08 18:01 | XRAY Report ---
PROCEDURE: Knee 2 View LT INDICATIONS: LEFT KNEE PAIN, BILAT AP W/B LEFT PA TUNNEL ONLY TECHNIQUE: 2 views of the knee was obtained. COMPARISON: None FINDINGS: Bones: No fractures or dislocations. No suspicious bony lesions. Severe lateral and moderate medial compartmental joint space and narrowing with subchondral sclerosis and marginal osteophytes Soft tissues: No suspicious soft tissue calcifications or masses. IMPRESSION: Severe degenerative osteoarthritis Reviewed by: Srinivasan Mary MD on 12/08/2022 5:00 PM DENEEN Approved by: Srinivasan Mary MD on 12/08/2022 5:00 PM AKELMER Station ID: [id number]
== END 2022-12-08 23:59 | disposition home or self-care (01) ==
LOC: DI.WOS 08:00
PROVIDERS: ATTEND Physician Assistant Surgical
DX: M17.12 Unilateral primary osteoarthritis, left knee (principal)

== ENCOUNTER 2023-06-28 12:14 | Outpatient (CLI) | payer MEDICARE, OTHER | END 2023-06-28 12:15 | disposition home or self-care (01) | LOC: DI 12:14 | PROVIDERS: ATTEND Physician Assistant | DX: R01.1 Cardiac murmur, unspecified (principal) | CPT/HCPCS: 93307 ==

== ENCOUNTER 2023-08-14 15:27 | Outpatient (CLI) | payer MEDICARE, OTHER ==
--- NOTE | 2023-08-14 16:58 | DEXA Report ---
PROCEDURE: Dexa Spine and/or Hip INDICATIONS: OSTEOPENIA TECHNIQUE: Dual energy x-ray absorptiometry (DXA) was performed on a Sense[employer] System. Regions measur ed are the AP Spine, femoral neck, and if needed forearm. COMPARISON: DEXA on April 21, 2021 FINDINGS: Lumbar Spine (L2-L4: Bone Mineral Density: 1.220 g/cm/cm,T score: 0.2. There has been no statistically significant change in bone mineral density since the prior study. Left Femoral Neck: Bone Mineral Density: 0.715 g/cm/cm, T score: -2.3. Left Hip: Bone Mineral Density: 0.824 g/cm/cm,T score: -1.5. There has been no statistically significant change in bone mineral density since the prior study. (T score greater or equal to -1.0: NORMAL) (T score from -1.1 to -2.4: OSTEOPENIA) (T score less than or equal to -2.5 to: OSTEOPOROSIS) Impression: By WHO criteria, this patient has low bone density (osteopenia). No statistical interval change in bone mineral density of the lumbar spine. No statistical interval c hange in bone mineral density of the hip. Patients with diagnosis of osteoporosis or osteopenia should have regular bone mineral density assess ment. For those eligible for Medicare, routine testing is allowed once every 2 years. Testing frequ ency can be increased for patients who have rapidly progressing disease or for those who are receivin g medical therapy to restore bone mass. Reviewed by: Arnie Phillips MD on 08/14/2023 4:57 PM PDT Approved by: Arnie Phillips MD on 08/14/2023 4:57 PM PDT Station ID: [id number]
== END 2023-08-14 15:28 | disposition home or self-care (01) ==
LOC: DI 15:27
PROVIDERS: ATTEND Physician Assistant
DX: M85.89 Other specified disorders of bone density and structure, multiple sites (principal)

== ENCOUNTER 2023-09-07 11:09 | Outpatient (CLI) | payer MEDICARE, OTHER ==
--- NOTE | 2023-09-07 13:10 | XRAY Report ---
PROCEDURE: Knee 4+V LT INDICATIONS: SEVERE LEFT KNEE DJD TECHNIQUE: 4 views of the knee(s) were acquired. COMPARISON: X-ray knee 12/08/2022 FINDINGS: Bones: No fractures or dislocations. No suspicious bony lesions. The right knee demonstrates severe bicompartmental arthritic change with periarticular osteophytes an d subchondral sclerosis. It is most severe in the lateral compartment. No distinct erosions. Overall appearance is progressive compared to 2022. The left knee demonstrates moderate to severe tricompartmental arthritic change most severe laterally . Periarticular osteophytes are present as well as no definitively identified erosions. Overall appea taylor is relatively stable compared to 202. Soft tissues: Mild left knee joint effusion. No suspicious soft tissue calcifications or masses. IMPRESSION: Significant bicompartmental arthritic change on the right progressive since 2022. Stable appearance of moderate to severe tricompartmental arthritic change on the left most severe lat erally. Reviewed by: Aliyah Jones MD on 09/07/2023 1:08 PM PDT Approved by: Aliyah Jones MD on 09/07/2023 1:08 PM PDT Station ID: [id number]
== END 2023-09-07 11:10 | disposition home or self-care (01) ==
LOC: DI 11:09
PROVIDERS: ATTEND Physician Assistant Surgical
DX: M17.0 Bilateral primary osteoarthritis of knee (principal)